=== PATIENT | female | born 1995 | race Caucasian/White ===

== ENCOUNTER 2020-03-02 17:58 | Emergency (ER) | payer OTHER, SELFPAY ==
[2020-03-02 18:04] VITALS: BP 155/75; PULSE 81; RESP 20; TEMP 37.4; O2SAT 100
--- NOTE | 2020-03-02 18:07 | ED.GENADULT ---
HPI - General Adult General Chief complaint: Eye Problems Stated complaint: Right eye Time Seen by Provider: 03/02/20 18:07 Source: patient Mode of arrival: ambulatory Limitations: no limitations History of Present Illness HPI narrative: 25-year-old female patient presents to the [facility] with complaints of pain to lower right lid on the eye. Patient states that started this morning when she woke up. Patient states that she wore eye make-up for the first time yesterday. Patient states she is tried warm compresses at home and feels like it is gotten worse. Patient denies any fevers or discharge coming from the eye. Patient denies any vision changes that she is aware of. Related Data Allergies Allergy/AdvReac Type Severity Reaction Status Date / Time No Known Allergies Allergy Verified 03/02/20 18:14 Review of Systems Review of Systems: Narrative: CONSTITUTIONAL: Denies fever, chills, or sweats. EYES: Denies visual changes, redness, or discharge. Positive right lower lid pain ENT: Denies rhinorrhea, congestion, sore throat, or otalgia. CARDIOVASCULAR: Denies chest pain, palpitations, or edema. RESPIRATORY: Denies cough or dyspnea. GASTROINTESTINAL: Denies abdominal pain, nausea, vomiting, or diarrhea. GENITOURINARY: Denies dysuria or hematuria. SKIN: Denies rash or itching. MUSCULOSKELETAL: Denies back pain, joint pain, or myalgia. NEUROLOGIC: Denies headache, numbness, or weakness. PSYCHIATRIC: Denies anxiety or depression. PMFSH Comments At the time of my signature I agree with nursing past medical history, surgical, social, and family history. There is no relevant family history pertinent to the presenting complaint. Exam Narrative: Exam Narrative: GENERAL: Well-appearing, well-nourished, and in no acute distress. HEAD: Normocephalic, atraumatic. EYES: PERRLA and EOM intact without limitation or complaint of pain, no periorbital soft tissue swelling ,no erythema, warmth or tenderness noted, no obvious deformity. No crusting or swelling.no tearing or draining.No photophobia. Patient does have an internal hordeolum noted on the lower lid toward the inner canthi and does internally. No nystagmus No FB or lesion on lid eversion. Corneas grossly clear, no obvious FB or hyphens/hypopyon. No injection to sclera. Lids and lashes clear. ENT: Nares clear, no rhinorrhea or epistaxis. Mucous membranes moist. NECK: Supple. No lymphadenopathy CHEST: Clear to auscultation. No respiratory distress. HEART: Regular rate and rhythm. No murmur heard. Normal peripheral pulses. ABDOMEN: Soft, nontender, nondistended, normal active bowel sounds. EXTREMITIES: Normal range of motion. No edema. SKIN: Warm, dry, no rash. NEURO: No focal deficits. Alert and oriented x3. Course Vital Signs Vital signs: Vital Signs Temperature 37.4 C 03/02/20 18:04 Pulse Rate 81 03/02/20 18:04 Respiratory Rate 20 03/02/20 18:04 Blood Pressure 155/75 H 03/02/20 18:04 Pulse Oximetry 100 03/02/20 18:04 Temperature 37.4 C 03/02/20 18:04 Pulse Rate 81 03/02/20 18:04 Respiratory Rate 20 03/02/20 18:04 Blood Pressure 155/75 H 03/02/20 18:04 Pulse Oximetry 100 03/02/20 18:04 Vital signs reviewed. The patient has been informed that they may have pre-hypertension or Hypertension based on a BP reading in the department. I recommend that the patient call the primary care provider listed on their discharge instructions or a physician of their choice this week to arrange follow up for further evaluation of possible pre-hypertension or Hypertension Medical Decision Making Differential Diagnosis Differential Diagnosis: Differential diagnosis: Conjunctivitis, foreign body, corneal ulcer, Keratitis, dendritic lesions, corneal abrasion, very orbital infection, orbital cellulitis, orbital pain, acute narrow angle glaucoma, detached retina, central retinal artery occlusion, complete hyphema, vitreous hemorrhage, optic neuritis, globe disruption
== END 2020-03-02 18:22 | disposition home or self-care (01) ==
PROVIDERS: Emergency Provider Nurse Practitioner Family
DX: H00.022 Hordeolum internum right lower eyelid (principal)
CPT/HCPCS: 99213; G0463

== ENCOUNTER 2020-03-25 19:00 | Emergency (ER) | payer OTHER, SELFPAY ==
[2020-03-25 19:07] VITALS: BP 150/73; PULSE 73; RESP 18; TEMP 36.8; O2SAT 100
--- NOTE | 2020-03-25 19:12 | ED.EYEPROB ---
HPI - Eye Problem General Chief complaint: Eye Problems Stated complaint: right eye Time Seen by Provider: 03/25/20 19:12 Source: patient and RN notes reviewed History of Present Illness HPI Narrative: Patient is a 25-year-old female who presents the urgent care with complaints of right eye irritation, redness, swelling. Patient states that it started approximately 1 month ago and she was seen in the emergency room and given Keflex, Bactrim and erythromycin gel. Patient states that she completed the oral antibiotic regimen and use the erythromycin gel as directed. Patient states that initially there was some improvement however, yesterday she noticed the swelling returned. Patient states she has been also using warm compress without any relief. Patient denies any known trauma or injury to the eye. Denies of any fever, chills, nausea, vomiting. No other acute complaints. No acute distress noted. Patient read the plan of care. Related Data Allergies Allergy/AdvReac Type Severity Reaction Status Date / Time No Known Allergies Allergy Verified 03/25/20 19:14 Review of Systems Review of Systems: Narrative: CONSTITUTIONAL: Denies fever, chills, or sweats. EYES: Reports of redness, swelling, drainage from the right eye ENT: Denies rhinorrhea, congestion, sore throat, or otalgia. CARDIOVASCULAR: Denies chest pain, palpitations, or edema. RESPIRATORY: Denies cough or dyspnea. GASTROINTESTINAL: Denies abdominal pain, nausea, vomiting, or diarrhea. GENITOURINARY: Denies dysuria or hematuria. SKIN: Denies rash or itching. MUSCULOSKELETAL: Denies back pain, joint pain, or myalgia. NEUROLOGIC: Denies headache, numbness, or weakness. All other systems reviewed are negative, except as documented in HPI. PMFSH Comments At the time of my signature, I reviewed and agree with the nursing past medical, surgical, social, and family history. There is no relevant family history pertinent to the patient complaint. Exam Narrative: Exam Narrative: GENERAL: This is a well-nourished, well-developed patient, in no apparent distress. HEAD: normocephalic, atraumatic. EYES: PERRL. Sclera clear/white. Vision is grossly intact. Mild to moderate edema to right lower lid, periorbital cellulitis. Likely clogged tear duct to the lower right inner canthus; no notable trauma, abrasion, hordeolum EARS: External ears normal NOSE: External nose normal with no obvious nasal discharge, nares without redness, no rhinorrhea. THROAT: Mucous membranes moist NECK: Neck supple SKIN: warm, intact with no suspicious lesions or rash, good texture and turgor. NEURO: awake, alert, and oriented to person, place and time. There were no obvious focal neurologic abnormalities. EXTREMITIES: No clubbing, cyanosis, or edema. Course Vital Signs Vital signs: Vital Signs Temperature 98.3 F 03/25/20 19:07 Pulse Rate 73 03/25/20 19:07 Respiratory Rate 18 03/25/20 19:07 Blood Pressure 150/73 H 03/25/20 19:07 Pulse Oximetry 100 03/25/20 19:07 Temperature 98.3 F 03/25/20 19:07 Pulse Rate 73 03/25/20 19:07 Respiratory Rate 18 03/25/20 19:07 Blood Pressure 150/73 H 03/25/20 19:07 Pulse Oximetry 100 03/25/20 19:07 Reviewed?patient is informed that they may have pre-hypertension or hypertension based on a blood pressure reading in the department. I recommend the patient call the primary care provider listed on their discharge instructions or a physician of their choice this week to arrange follow-up for further evaluation of possible pre-hypertension or hypertension. MDM - Eye Problem MDM Narrative Medical decision making narrative: Advised patient to complete oral antibiotic regimen as prescribed. Make sure to eat and drink with medication. Use eyedrops to the right eye as directed making sure to wipe off the applicator between each use. It appears that you may have had a clogged tear duct to the inner canthus of the right eye, causing the periorbital ce
== END 2020-03-25 19:24 | disposition home or self-care (01) ==
PROVIDERS: Emergency Provider Nurse Practitioner Family
DX: H04.551 Acquired stenosis of right nasolacrimal duct (principal); L03.213 Periorbital cellulitis
CPT/HCPCS: 99213; G0463

== ENCOUNTER 2025-03-03 15:35 | Emergency (ER) | payer OTHER, SELFPAY ==
--- NOTE | ~2025-03-03 | XR_ITS ---
XR ankle LT min 3V Ordering provider: Christina Tovar APRN History: . HYPEREXTENSION INJURY, GEN PAIN . Comparison: None. FINDINGS: BONES: No acute fracture or dislocation. JOINT SPACES: The ankle mortise is normal. SOFT TISSUES: Normal. IMPRESSION: No acute osseous abnormality left ankle. Reviewed, dictated and finalized at location A.
--- NOTE | ~2025-03-03 | XR_ITS ---
HISTORY: HYPEREXTENSION INJURY, GEN PAIN COMPARISON: None TECHNIQUE: 3 views of the left foot were performed FINDINGS: Cortical irregularity along the anterior medial margin of the distal calcaneus, only visualized on a single view for which clinical correlation is needed regarding point tenderness, as this may simply r epresent degenerative disease. No additional findings to suggest a fracture deformities are present The base of the fifth metatarsal is intact. No calcaneal spur is noted. Trace dorsal soft tissue swelling is present within the mid foot and hindfoot. IMPRESSION: Cortical irregularity along the anterior medial margin of the distal calcaneus, visualiz ed on a single view only for which clinical correlation is needed regarding point tenderness in this location as this may simply represent degenerative disease (and an irregular osteophyte). Reviewed, dictated and finalized at location A. IMPRESSION: Cortical irregularity along the anterior medial margin of the dist al calcaneus, visualized on a single view only for which clinical correlation i s needed regarding point tenderness in this location as this may simply represe nt degenerative disease (and an irregular osteophyte).
--- OUTSIDE RECORDS SUMMARY | 2025-03-03 15:38 | XMS_ITS | Patient Health Record ---
Author Organization [facility] Address [address] [place] [address] Care Team Providers Care Tooling Mechanic Name Role Phone Carie Finney Primary Care Provider Reason For Referral No Information Social History Sex Assigned At : Social History Observation Description Sex Assigned At Female PRAPARE Question Answer Notes Date Completed/Updated: 10/20/2024 What is your current housing situation? I have h ousing Are you worried about losing your housing? No What is the highest level of school that you have finished? Less than a high school degree What is your current work situation? Unemployed and seeking work In the past year, have you o r any family members you live with been unable to get any of the following when it was really needed? Check all that apply I do not have problems meeting my needs Has lack of transportation k ept you from medical appointments, meetings, work or from getting things needed for daily living? No How often do you see or talk to people that you care about and feel close to? (For example: talking to friends on the phone, visiting friends or family, going to orthodox or club meetings) Less than once a week How stressed are you? Stress is when someone feels tense, nervous, anxious, or can\t sleep at night because their mind is troubled A little bit In the past year have you sp ent more than 2 nights in a row in a fpc, penitentiary, half-way center, or juvenile correctional facility? No Are you a refugee? No What country are you from? [place] Do you feel physically and e motionally safe where you currently live? Yes In the past year, have you b een afraid of your partner or ex-partner? No PRAPARE Score: 8 Encounters Encounter Location Date Provider Diagnosis [facility] [facility] [place] [address] 10/21/2024 Carie Finney Plan Of Treatment No Information Insurance Providers Payer Name Payer Address Payer Phone Subscriber Number Group Number Insured Name Patient Relationship to Insured Coverage Start Date Coverage End Date [address] [phone] [id number] Ashlyn Polk Self - patient is the insured 3
--- OUTSIDE RECORDS SUMMARY | 2025-03-03 15:38 | XMS_ITS | Clinical Summary ---
Author Organization [facility] Address [address] [place] [address] Care Team Providers Care Patient Svcs Mgr Name Role Phone Unavailable Primary Care Provider Unavailabl e Source Comments [facility],non-owned Affiliates and Associated Physician Practices is amultiple site organization consisting of ambulatory clinics and hospital sitesin [place], [place], [place] and [place]. This disclosure is being madepursuant to the Care Everywhere program and may not contain all information available regarding this patient. Last updated 18.[facility] Social History Tobacco Use Types Packs/Day Years Used Date Smoking Tobacco: Never Assessed Comments Unknown Sex and Gender Information Value Date Recorded Sex Assigned at Not on file Legal Sex Female 12:50 PM CDT Gender Identity Not on file Sexual Orientation Not on file Plan of Treatment Health Maintenance Due Date Last Done Comments HIV SCREENING 02/04/2012 HEPATITIS C SCREENING 01/30/2015 DTAP/TDAP/TD VACCINES (1 - Tdap) 02/04/2016 HEPATITIS B VACCINE (1 of 3 - 19+ 3-dose series) 02/04/2016 COVID-19 VACCINE ( - 2023-2 5 season) 2024 DEPRESSION SCREENING 10/14/2024 INFLUENZA VACCINE (Season Ended) 2025 ZOSTER VACCINE (1 of 2) 2047 HIB VACCINE Aged Out No longer eligi ble based on patient's age to complete this topic HPV VACCINE Aged Out No longer eligi ble based on patient's age to complete this topic MENINGOCOCCAL (Group B) VACC INE SHARED DECISION-MAKING Aged Out No longer eligibl e based on patient's age to complete this topic MENINGOCOCCAL GROUPS A/C/Y/W VACCINE Aged Out No longer eligible b ased on patient's age to complete this topic PNEUMOCOCCAL VACCINE Aged Out No long er eligible based on patient's age to complete this topic Insurance [facility]
--- OUTSIDE RECORDS SUMMARY | 2025-03-03 15:38 | XMS_ITS ---
Author Organization [facility] Address [address] [place] [address] Care Team Providers Care Director Of Intelligence Name Role Phone Rosa Finneyfer Primary Care Provider [phone] REASON FOR VISIT PRAPARE Assess Social History Sex Assigned At : Social [...] phone, visiting friends or family, going to congregation or club meetings) Less than once a week How stressed are you? Stress is when someone feels tense, nervous, anxious, or can\t sleep at night because their mind is troubled A little bit In the past year have you sp ent more than 2 nights in a row in a usp, long term, senior living center, or juvenile correctional facility? No Are you a refugee? No What country are you from? [place] Do you feel physically and e motionally safe where you currently live? Yes In the past year, have you b een afraid of your partner or ex-partner? No PRAPARE Score: 8 Encounters Encounter Location Date Provider Diagnosis [address] [place] [address] 10/21/2024 Carie Finney Plan Of Treatment No Information Progress Notes * Pretty POLKOB:[birth year] (30 yo F)Acc No.[id number]:10/21/2024 UNLOCKED PROGRESS NOTE Patient: Ashlyn MATTHEWS :1995 A ge:29 Y S ex:Female Address:[place] [address] Subjective: * Chief Complaints: * Walter JUAN Assess * Medical History: * Surgical History: * Hospitalization/Major Diagno stic Procedure: * Social History: S ocial Determinants: Walter Davis ate Completed/Updated: 0 10/20/2024, W hat is your current housing situation? I have housing, A re you worried about losing your housing? N o, W hat is the highest level of school that you have finished? L ess than a high school degree, W hat is your current work situation? U nemployed and seeking work, I n the past year, have you or any family members you live with been unable to get any of the following when it was really needed? Check all that apply I do not have problems meeting my needs, H as lack of transportation kept you from medical appointments, meetings, work or from getting things needed for daily living? N o, H ow often do you see or talk to people that you care about and feel close to? (For example: talking to friends on the phone, visiting friends or family, going to congregation or club meetings) L ess than once a week, H ow stressed are you? Stress is when someone feels tense, nervous, anxious, or can\t sleep at night because their mind is troubled A little bit, I n the past year have you spent more than 2 nights in a row in a usp, long term, senior living center, or juvenile correctional facility? N o, A re you a refugee? N o, W hat country are you from[place], D o you feel physically and emotionally safe where you currently live? Y es, I n the past year, have you been afraid of your partner or ex-partner? N o, P RAPARE Score: 8. * Medications: Objective: * Vitals: * Physical Examination: Assessment: Plan: * Treatment: * Procedure Codes: * * Date:
--- OUTSIDE RECORDS SUMMARY | 2025-03-03 15:38 | XMS_ITS | Referral Summary ---
Author Organization [facility] Address [address] [place] [address] Care Team Providers Care Department Coordinator Name Role Phone Kavon Murdock MD Unavailable No, Physician Primary Care Provider [phone] Allergies Active Allergy Reactions Criticality Noted Date Comments Penicillin G Swelling Medium 02/15/2023 States her throat swells Penicillins Hives Medium 09/12/2022 Medications docusate sodium (COLACE) 100 mg capsuleIndicati ons:constipatio n,Stool Softener Take 1 capsule (100 mg total) by mouth 2 (two) times a day 30 capsule 1 4 Active ferrous sulfate 325 mg (65 mg of elemental iron) tabletIndicatio ns:Iron Deficiency Anemia Take 1 tablet (325 mg total) by mouth daily with breakfast 30 tablet 11 4 03/16/20 25 Active Active Problems Problem Noted Date Diagnosed Date with fetus of unknown gestational age 0603/14/2024 Amenorrhea 06/26/2023 Current smoker 04/17/2023 Anxiety 04/17/2023 Assessment & Plan (06/26/2023 9:30 AM CDT): Not well controlled Still having mood swings Recommend eval by psychiatry For now continue zoloft 100 mg every day Physical exam, annual 03/25/2023 Assessment & Plan (03/25/2023 3:38 PM CDT): Discussed lifestyle modifications, diet and exercise. Routine blood work ordered/reviewed today. Yearly vision and dental examinations. Exposure to STD 09/11/2021 Negative test 07/06/2019 Resolved Problems Problem Noted Date Diagnosed Date Resolved Date Strep pharyngitis 09/11/2021 06/26/2023 Impetigo 07/06/2019 06/26/2023 Immunizations Immunization Administration Dates Next Due Influenza, Unspecified 01/11/2023(Deferr ed: Patient Refused),10/31/2021(Deferred: Patient Refused),10/14/2020 Tdap 03/15/2022 Social History Tobacco Use Types Packs/Day Years Used Date Smoking Tobacco: Every Day Cigarettes 2.6 16.4 Started: 2008 Vaping Started: 2022 Smokeless Tobacco: Never Tobacco Cessation:Ready to Q uit: No; Counseling Given: Yes Alcohol Use Standard Drinks/Week Comments No 0 (1 standard drink = 0.6 oz pur e alcohol) [facility] Wi-Chiities Answer Date Recorded In the past 12 months has [employer] gas, oil, or water [employer] threatened to shut off services in your home? No 03/16/2024 Humiliation, Afraid, Rape, and Kick questionnair e Answer Date Recorded Within the last year, have y ou been afraid of your partner or ex-partner? No 03/16/2024 Within the last year, have y ou been humiliated or emotionally abused in other ways by your partner or ex-partner? No Within the last year, have y ou been kicked, hit, slapped, or otherwise physically hurt by your partner or ex-partner? No 03/16/2024 Within the last year, have y ou been raped or forced to have any kind of sexual activity by your partner or ex-partner? No 03/16/2024 Social Connection and Isolat ion Panel [NHANES] Answer Date Recorded In a typical week, how many times do you talk on the phone with family, friends, or neighbors? More than three times a week 03/16/2024 How often do you get togethe r with friends or relatives? More than three times a week 03/16/2024 How often do you attend [facility] or rastafarian services? Never 03/16/2024 Do you belong to any clubs o r organizations such as oriental orthodox groups, unions, fraternal or athletic groups, or school groups? No 03/16/2024 How often do you attend meet ings of the clubs or organizations you belong to? Never 03/16/2024 Are you , , di vorced, , never , or living with a partner? Never 03/16/2024 AUDIT-C Answer Date Recorded Q1: How often do you have a drink containing alcohol? Never 03/16/2024 Q2: How many drinks containi ng alcohol do you have on a typical day when you are drinking? Patient does not drink Q3: How often do you have si x or more drinks on one occasion? Never 03/16/2024 Overall Financial Resource Strain (CARDIA) Answe r Date Recorded How hard is it for you to pa y for the very basics like food, housing, medical care, and heating? Not hard at all 03/16/2024 PHQ-2 Answer Date Recorded PHQ-2 Total Score 0 03/16/2024 [facility] - Occupational Stress Questionnaire Answer Date Recorded Do you feel stress - tense, restless, nervous, or anxious, or unable to sleep at night because your mind is troubled all the time - these days? To some extent 03/16/2024 Exercise Vital Sign Answer Date Recorde d On average, how many days pe r week do you engage in moderate to strenuous exercise (like a brisk walk)? 0 days 03/16/2024 On average, how many minutes do you engage in exercise at this level? 0 min 03/16/2024 Hunger Vital Sign Answer Date Recorded Within the past 12 months, y ou worried that your food would run out before you got the money to buy more. Never true 03/16/20 24 Within the past 12 months, t he food you bought just didn't last and you didn't have money to get more. Never true 03/16/2024 PRAPARE - Transportation Answer Date Re corded In the past 12 months, has l ack of transportation kept you from medical appointments or from getting medications? No 12/2023 In the past 12 months, has l ack of transportation kept you from meetings, work, or from getting things needed for daily living? No 03/16/2024 [place] Depression Scale Answer Date Recorded [place] Depression Scale Total 0 03/16/2024 The thought of harming myself has occurred to me . Never 03/16/2024 Housing Stability Vital Sign Answer Madi e Recorded In the last 12 months, was t here a time when you were not able to pay the mortgage or rent on time? No 03/16/2024 In the past 12 months, how m any times have you moved where you were living? 2 03/16/2024 At any time in the past 12 m [facility], were you homeless or living in a senior care (including now)? Yes 03/16/2024 Personal Safety Answer Date Recorded Have you ever been in or are you currently in a harmful physical or emotional relationship or is someone making you feel afraid or unsafe? Denies 03/14/2024 Comments No Sex and Gender Information Value Date Recorded Sex Assigned at Not on file Legal Sex Female 4:39 PM CDT Gender Identity Female 02/10/2024 8:29 PM CDT Sexual Orientation Straight 02/10/2024 8: 29 PM CDT Last Filed Vital Signs Vital Sign Reading Time Taken Comments Blood Pressure 133/79 03/16/2024 3:42 PM CDT Pulse 72 03/16/2024 3:42 PM CDT Temperature 37.1 C (98.7 F) 03/16/2024 3:42 PM CDT Respiratory Rate 17 03/16/2024 3:42 PM CDT Oxygen Saturation 99% 03/16/2024 3:42 PM CDT Inhaled Oxygen Concentration - - Weight 70.1 kg (154 lb 9.6 oz) 06/26/2023 9:10 A M CDT Height 157.5 cm (5' 2 ) 06/26/2023 9:10 AM CDT Body Mass Index 28.28 06/26/2023 9:10 AM CDT Plan of Treatment Not on file Procedures Procedure Name Priority Date/Time Associated Diagnosis Comments HEPATITIS PANEL, ACUTE Routine 03/14/2024 11:49 AM CDT HM PAP SMEAR WITH HPV Routine 08/18/2020 from Last 3 Months or Most Recently Relevant to Health Maintenance Results * Hepatitis panel, acute Blood (03/14/2024 11:49 AM CDT) Hep A IgM Nonreactive Nonreactive Comment: Interpretive Data: If Hep A IgM Ab is reported as Equivocal, a new sample should be drawn in two weeks for testing. Current interpretive data was last revised on 19. Testing performed by: [address] [address] Hep B core IgM Nonreactive Nonreactive C DEA CHANEY ([place]) Comment: Interpretive Data If HepB Core IgM Ab is reported as Equivocal, a new sample should be drawn in two weeks for testing. Current interpretive data was last revised on 19. Testing performed by: [address] [address] Hep C Ab Nonreactive Nonreactive ALIA CHANEY ([place]) Comment: Interpretive Data Nonreactive: Antibodies to HCV not detected. Does NOT exclude the possibility of recent exposure to HCV. Equivocal: Equivocal for HCV antibodies. Supplemental molecular testing will be automatically performed to determine infection status in accordance with current CDC screening recommendations. Reactive: Positive for HCV antibodies. This may represent current or past HCV infection. Supplemental molecular testing will be automatically performed to determine current infection status in accordance with current CDC screening recommendations. Interpretive data was last revised on 2019. Testing performed by: [facility], [address] [place] [address]., [id number] HepBsAg Nonreactive Nonreactive ALIA CHANEY ([place]) Comment:Testing performed by : [address] [address] Blood 03/14/2024 11:4 9 AM CDT 03/14/2024 4:21 PM CDT us August Arzate MD LAB MICROBIOLOGY - GEN ERAL ORDERABLES Final Result VIRIBENNETT CHANEY ([place]) 1 [facility] Department [place] [address] * (ABNORMAL) HM PAP SMEAR WITH HPV (08/18/2020) Scribed Pap Smear w/HPV Abnormal 08/18/2020 us Historical Provider HEALTH MAINTENANCE Final Result from Last 3 Months or Most Recently Relevant to Health Maintenance Insurance [facility] Advance Directives For more information, please contact: [phone] * Full Code (Latest Code Status on File) Date Activated Date Inactivated Comments 03/14/2024 3:51 PM 03/16/2024 10:35 PM * Full Code Date Activated Date Inactivated Comments 03/14/2024 11:48 AM 03/14/2024 3:51 PM Full CPR in c ase of cardiopulmonary arrest * Full Code Date Activated Date Inactivated Comments 05/08/2022 1:19 PM 05/10/2022 8:52 PM * Full Code Date Activated Date Inactivated Comments 05/07/2022 11:06 PM 05/08/2022 1:19 PM Full CPR in case of cardiopulmonary arrest * Full Code Date Activated Date Inactivated Comments 02/08/2021 9:54 AM 02/10/2021 8:09 PM Full CPR in case of cardiopulmonary arrest Care Teams Department Coordinator Relationship Specialty Start Date End Date No, Physician PCP - General 02/20/24 Kavon Murdock MD [address] [place] [address] [address] BUT[address] [address] Jet Handler Obstetrics and Gynecology 10/31/21
--- OUTSIDE RECORDS SUMMARY | 2025-03-03 15:38 | XMS_ITS | Clinical Summary ---
Author Organization [facility] Address [address] [place] [address] Care Team Providers Care Vice President Of Operations Name Role Phone Kavon Mudrock MD Unavailable [phone] No, Physician Primary Care Provider [phone] Allergies Active Allergy Reactions Criticality Noted Date [...] ed: Patient Refused),10/31/2021(Deferred: Patient Refused),10/14/2020 Tdap 03/15/2022 Medical History Medical History Date Comments Hiatal hernia Mental disorder anxiety, took fl uoxitine in the past Lung disease asthma Urinary tract infection Asthma Family History Medical History Relation Name Comments Hypertension Maternal Grandfather Hypertension Mother Relation Name Status Comments Maternal Grandfather Mother Social History Tobacco Use Types Packs/Day Years Used Date Smoking Tobacco: Every Day Cigarettes 2.6 16.4 Started: 2008 Vaping Started: 2022 Smokeless Tobacco: Never Tobacco Cessation:Ready to Q uit: No; Counseling Given: Yes Alcohol Use Standard Drinks/Week Comments No 0 (1 standard drink = 0.6 oz pur e alcohol) [facility] [employer] Answer Date Recorded In the past 12 months has e [employer], gas, oil, or water [email or web address] threatened to shut off services in your [...] week 03/16/2024 How often do you attend chur ch or confucianist services? Never 03/16/2024 Do you belong to any clubs o r organizations such as denominational groups, unions, fraternal or athletic groups, or [...] Date Recorded PHQ-2 Total Score 0 03/16/2024 [facility] Occupat ional Health - Occupational Stress [...] things needed for daily living? No 03/16/2024 [place] Depression Scale Answer Date Recorded [place] Depression Scale Total 0 03/16/2024 The thought [...] any time in the past 12 m onths, were you homeless or living in a residential (including now)? Yes 03/16/2024 Personal Safety Answer [...] Orientation Straight 02/10/2024 8: 29 PM CDT Obstetrics History Para Term AB IAB SAB Ectopic Multiple Livin g Live Births 6 6 4 2 1 7 7 Date Outcome GA Total Labor Labor/2nd/3rd Weight Sex Type Anes PTL Louise A1 A5 Name Clin 2015 Term M Livin g 2016 F Vag-Sp ont Livin g 2016 F Livin g 2018 Term 39w 4d 0h 06m 0h 06m 3.21 kg (7 lb 1.2 oz) F Vag-Sp ont Epidur al N Livin g 8 9 JOEY POLK Olami de, MD Complications:None Delivery Location:This [facility] ([facility]) 2020 Term 39w 5d 6h 19m 6h 03m/0h 09m/0h 07m 2.871 kg (6 lb 5.3 oz) M Vag-Sp ont Epidur al N Livin g 7 9 DEISI ,JOÃO JAKOB olivares, Pearl Treviño MD Complications:None Delivery Location:This [facility] ([facility]) 2021 Term 38w 0d 1h 21m 1h 05m/0h 08m/0h 08m 3.38 kg (7 lb 7.2 oz) F Vag-Sp ont Epidur al N Livin g 9 9 DEISI ,GIRL JENNIFER JUAREZA Hardaubrey an, Kavon woo MD Complications:None Delivery Location:This [facility] ([facility]) 2023 36w 5d 1h 06m 0h 50m/0h 14m/0h 02m 3.49 kg (7 lb 11.1 oz) F Vagina l Epidur al Y Livin g 8 8 Anast braydon Melod y Harpe r Hamma ck She r, Aman howell MD Complications:Precipitous La bor (<3 hours) Delivery Location:This Facil [facility] ([facility]) Comments 2 miscarriages years ago and 1 before this Last Filed Vital Signs Vital Sign Reading [...] 06/26/2023 9:10 AM CDT Plan of Treatment Health Maintenance Due Date Last Done Comments Varicella Vaccines (1 of 2 - 13+ 2-dose series) 2010 Hepatitis B Screening 2015 Pneumococcal vaccine <65 (1 of 2 - PCV) 02/04/2016 Cervical Cancer Screening 08/18/2021 08/18/2020 Regular Well Visit/Exam 18-64 03/25/2024 03/25/2023 Depression Screening 03/16/2025 03/16/2024, 03/14/2024, 06/26/2023, Additional history exists Influenza Vaccine (Season Ended) 2025 10/14/2020 DTaP/Tdap/Td Vaccine (2 - Td or Tdap) 03/15/2032 03/15/2022 Hepatitis C Screening Completed 03/14/2024, 021 HPV Vaccines Aged Out No longer eligi ble based on patient's age to complete this topic Procedures Procedure Name Priority Date/Time Associated Diagnosis [...] last revised on 19. Testing performed by: [address] [address] Hep B core IgM Nonreactive Nonreactive Cornel CHANEY ([place]) Comment: Interpretive Data If HepB Core IgM Ab is reported as Equivocal, a new sample should be drawn in two weeks for testing. Current interpretive data was last revised on 19. Testing performed by: [address] [address] Hep C Ab Nonreactive Nonreactive [facility] ([place]) Comment: Interpretive Data Nonreactive: Antibodies to [...] last revised on 2019. Testing performed by: [address] [place]., [address] HepBsAg Nonreactive Nonreactive ALIA SHIV ([place]) Comment:Testing performed by : [facility], [address] [place] [address]., [id number] Blood 03/14/2024 11:4 9 AM CDT 03/14/2024 4:21 PM CDT August Arzate MD LAB MICROBIOLOGY - GEN ERAL ORDERABLES Final Result ALIA CHANEY ([place]) 1 [facility] Department [place] [address] * (ABNORMAL) HM PAP SMEAR WITH HPV (08/18/2020) Scribed Pap Smear w/HPV Abnormal 08/18/2020 Historical Provider HEALTH MAINTENANCE Final Result from Last 3 Months or Most Recently Relevant to Health Maintenance Insurance [facility] Advance Directives For more information, please contact: [phone] * Full Code (Latest Code Status on [...] in case of cardiopulmonary arrest Care Teams Vice President Of Operations Relationship Specialty Start Date End Date No, Physician PCP - General 02/20/24 Kavon Murdock MD [address] [place] [address] [address] BUTCHER [place] [id number] Template Layout Worker Obstetrics and Gynecology 10/31/21
--- OUTSIDE RECORDS SUMMARY | 2025-03-03 15:38 | XMS_ITS | Clinical Summary ---
Author Organization [facility] Address [address] [place] [address] Phone Care Team Providers Care Interior Design Professional Name Role Phone Provider, None Primary Care Provider Unavailabl e Allergies Active Allergy Reactions Criticality Noted Date Comments Penicillin G Swelling 02/15/2023 States her throat swells Medications promethazine (PHENERGAN) 12.5 MG Tablet 09/01/2018 Acti ve pantoprazole (PROTONIX) 40 MG Tablet Delayed Response 08/26/2018 Active metroNIDAZOLE (FLAGYL) 500 MG TabletIndicatio ns:Colitis Take 1 Tab by mouth 3 times daily. 30 Tab 04/07/2020 Active ondansetron (ZOFRAN-ODT) 4 MG TABLET DISPERSIBLEIndi cations:Colitis Take 1 Tab by mouth every 8 hours as needed for Nausea - 2nd line. 20 Tab 10/12/2020 Active metoclopramide (REGLAN) 10 MG Tablet Take 1 Tab by mouth 3 times daily as needed for Nausea - 1st line or Vomiting. 60 Tab 10/12/2020 Active HYDROcodone-alma taminophen (NORCO) 5-325 MG TabletIndicatio ns:Threatened miscarriage,Uri nary tract infection Take 1 Tablet by mouth every 6 hours as needed for Moderate or more severe pain. 10 Tablet 03/09/2023 Active Active Problems Problem Noted Date Diagnosed Date Colitis 04/07/2020 Ventral hernia without obstruction or gangrene 1 11/17/2017 Immunizations Immunization Administration Dates Next Due RHO D IG FULL DOSE 300 MCG IM 03/09/2023 Family History Medical History Relation Name Comments Diabetes Father Hypertension Mother Relation Name Status Comments Father Alive Mother Alive Social History Tobacco Use Types Packs/Day Years Used Date Smoking Tobacco: Every Day Cigarettes 0.5 10 Smokeless Tobacco: Never Tobacco Cessation:Ready to Q uit: No; Counseling Given: No Alcohol Use Standard Drinks/Week Comments Not Currently 0 (1 standard drink = 0.6 oz pur e alcohol) once or twice Comments Unknown Sex and Gender Information Value Date Recorded Sex Assigned at Not on file Legal Sex Female 9:46 AM CDT Gender Identity Not on file Sexual Orientation Not on file Last Filed Vital Signs Vital Sign Reading Time Taken Comments Blood Pressure 138/72 03/09/2023 7:24 PM CDT Pulse 112 03/09/2023 4:26 PM CDT Temperature 37.2 C (99 F) 03/09/2023 4:26 PM CDT Respiratory Rate 20 03/09/2023 4:26 PM CDT Oxygen Saturation 100% 03/09/2023 4:26 PM CDT Inhaled Oxygen Concentration - - Weight 65.8 kg (145 lb) 03/09/2023 4:26 PM CDT Height 157.5 cm (5' 2 ) 03/09/2023 4:26 PM CDT Body Mass Index 26.52 03/09/2023 4:26 PM CDT Plan of Treatment Health Maintenance Due Date Last Done Comments Hepatitis C Virus (HCV) Screening 1997 Hepatitis B Immunization (1 of 3 - 19+ 3-dose series) 02/04/2016 Pneumococcal Immunization Combined (1 of 2 - PCV) 02/04/2016 Pap Smear 2018 Influenza Immunization (#1) 2024 10/14/2020 SARS-COV-2 Immunization ( season) 2024 Respiratory Syncytial Virus (RSV) Immunization (Adult) (1 - 1-dose 75+ series) 02/04/2072 DTaP/Tdap/Td Immunization Discontinued 03/15/2022 TdaP Immunization Completed 03/15/2022 Meningococcal Immunization (ACWY) Aged Out No longer eligible based on patient's age to complete this topic Rotavirus Immunization Aged Out No lo nger eligible based on patient's age to complete this topic Insurance [place] Care Teams Interior Design Professional Relationship Specialty Start Date End Date Provider, None [place] PCP - General 07/22/18
--- OUTSIDE RECORDS SUMMARY | 2025-03-03 15:42 | XMS_ITS | Data Portability ---
Author Organization [facility] DICKSusana Wilhelm Address [address] [place] [address] Care Team Providers Care Preflight Inspector Name Role Phone KAITY JORGENSEN Chemical Detection Expert Assessment No assessment recorded. Plan of Treatment Reminders Order Date Submit Date Provider Last Modified By Organization Details Last Modified Time Details Appointments None record ed. Lab urinal ysis, dipsti ck 2023 024 [email or web address] In-Office Order, Internal Use Only DO Not Attach Compendium DO Not Attach Compendium, Do Not Delete/merge, [id number] 4 01:52:57 drug screen , urine 2023 024 KRISTY [facility], [address], [place], [address], 4 07:15:38 cultur e, urine 2023 024 [email or web address] [facility], [address], [place], [address], 4 09:10:55 prenat al panel 2023 024 KRISTY [facility], [address] [place] [address], [address], 4 17:18:15 hemogl obin (Hb) electr ophore sis, blood 2023 024 [email or web address] [facility], [address] [place] [address] 2, [place], [address], 4 11:33:16 HIV 1 + 2, meanin gful use set 2023 024 cdarrrn [facility], [address] [facility], [facility], [place], [address], 4 11:33:16 varice lla zoster virus IgG Ab, QN, IA, serum 2023 024 cdarrrn [facility], [address] [facility], [facility], [place], [address], 4 11:33:16 urinal ysis comple te, reflex cultur e 2023 024 cdarrrn [facility], [address] [facility], [facility], [place], [address], 4 11:33:16 drug screen , urine 2023 024 cdarrrn [facility], [address] [place] [address], [facility], [place], [address], 4 11:33:16 CFTR gene mutati ons found, blood or tissue 2023 024 [email or web address] [facility], [address] [facility], [facility], [place], [address], 4 09:12:15 Hepati tis C IgG Ab, qual, serum 2023 024 cdarrrn [facility], [address] [facility], [facility], [place], [address], 4 11:34:28 drug screen , urine 2023 024 cdarrrn [facility], [address] [place] [address], [facility], [place], [address], 4 11:33:27 urinal ysis, dipsti ck 2023 024 [email or web address] In-Office Order, Internal Use Only DO Not Attach Compendium DO Not Attach Compendium, Do Not Delete/merge, [id number] 4 12:51:51 pregna ncy test, urine 2023 024 [email or web address] In-Office Order, Internal Use Only DO Not Attach Compendium DO Not Attach Compendium, Do Not Delete/merge, [id number] 4 13:52:23 cytolo gy report , thin prep, smear or scrapi ng, cervic al or vagina l 2023 024 COLLISON [facility], [address], [place], [address], 4 07:15:34 HCG, intact + beta subuni t, quant, serum or plasma 2022 023 [facility], [address], [place], [address], 3 11:29:17 Referral dermat ologis t referr al 2023 024 [facility] ([facility]), [address] [facility], [address], [place], [address], 4 15:02:27 Procedures None record ed. Surgeries None record ed. Imaging US, obstet kita, matern al evalua tion + anatom y [address] [facility] (Central Scheduling), [address], [place], [address], 4 11:55:59 US, obstet kita, matern al evalua tion + anatom y [facility], [address] [facility] , [place], [address], 4 11:56:22 Medication Orders medrox yproge steron e 150 mg/mL intram uscula r suspen luis manuel 2023 024 [id number] [place], [address], 4 15:20:41 Prozac 20 mg capsul e 2023 024 [id number] [address] [place], [address], 4 14:30:46 medrox yproge steron e 150 mg/mL intram uscula r suspen luis manuel 2023 024 [id number] [place], [address], 4 10:49:42 Macrob id 100 mg capsul e 2023 024 [id number] [address] [place], [address], 4 14:30:50 Patient TargetsNo targets recorded. Patient Instructions Encounter Date Encounter Id Patient Instructions Last Modified By Organization Details Last Modified Time 02/06/2024 [id number] edinburgh depression scale* COLLISON Not available 02/06/2024 13:50:46 04/27/2024 [id number] A healthy lifestyle: care instructions ebenezer Not available 04/27/2024 10:58:14 05/05/2024 [id number] A healthy lifestyle: care instructions [facility] Not available 05/05/2024 15:20:41 Reason for Referral Package Sealer Machine Referral for H idradenitis Referring Physician: Kaity Jorgensen, PROCESS AREA SUPERVISOR, Encounter Date: 05/05/2024 Results Created Date Observation Date Name Description Value Unit Range Abnormal Flag Note LastModifiedBy Organization Detail LastModifiedTime 03/13/20 23 03/14/2023 HCG,B ETA SUBUN IT, QNT HCG,beta subunit,qnt, serum 80 mIU/m L Femal e (Non- pregn ant) 0 - 5 (Post menop ausal ) 0 - 8 Femal e (Preg nant) Weeks of Gesta tion 3 6 - 71 4 10 - 750 5 217 - 7138 6 158 - 50193 7 3697 -1635 63 8 38333 -1495 71 9 29022 -1514 10 10 80367 -1869 77 12 75545 -2106 12 14 74446 - 53652 15 39646 - 82195 16 9040 - 88676 17 8175 - 05935 18 8099 - 74171 Gloria ECLIA metho dolog y Not Available [facility] ([facility]) [address] [place], [address], 03/14/2023 11:12:53 10/01/20 23 10/02/2023 HCG,B ETA SUBUN IT, QNT HCG,beta subunit,qnt, serum 53283 mIU/m L Femal e (Non- pregn ant) 0 - 5 (Post menop ausal ) 0 - 8 Femal e (Preg nant) Weeks of Gesta tion 3 6 - 71 4 10 - 750 5 217 - 7138 6 158 - 87827 7 3697 -1635 63 8 36572 -1495 71 9 84464 -1514 10 10 55197 -1869 77 12 16411 -2106 12 14 70794 - 02547 15 58677 - 75256 16 9040 - 66583 17 8175 - 09803 18 8099 - 27855 Resul ts confi rmed on dilut ion. Gloria ECLIA metho dolog y Not Available [facility] ([facility]) [address] [facility], [place], [address], 10/02/2023 11:12:41 02/06/20 24 02/09/2024 IGP,C TNGTV ,RFX APTIM A HPV ASCU chlamydia, nuc. acid amp Negati ve negati ve Not Available [facility] ([facility]) [address] [facility], [place], [address], 02/11/2024 07:15:34 02/06/20 24 02/09/2024 IGP,C TNGTV ,RFX APTIM A HPV ASCU gonococcus, nuc. acid amp Negati ve negati ve Not Available [facility] ([facility]) [address] [place], [address], 02/11/2024 07:15:34 02/06/20 24 02/09/2024 IGP,C TNGTV ,RFX APTIM A HPV ASCU trich vag by RAISA Negati ve negati ve Not Available [facility] ([facility]) [address] [place], [address], 02/11/2024 07:15:34 02/06/20 24 02/10/2024 IGP,C TNGTV ,RFX APTIM A HPV ASCU diagnosis: Shady WILKINS FOR INTRA EPITH ELIAL LESIO N OR CLIFTON LÓPEZ . Not Available [facility] ([facility]) [address] [facility], [place], [address], 02/11/2024 07:15:34 02/06/20 24 02/10/2024 IGP,C TNGTV ,RFX APTIM A HPV ASCU specimen adequacy: Shady raymond Satis factyoli ry for evalu ation . Endoc ervic al and/o r squam ous metap lasti c cells (endo cervi rochelle compo nent) are prese nt. Not Available [facility] ([facility]) [address] [facility], [place], [address], 02/11/2024 07:15:34 02/06/20 24 02/10/2024 IGP,C TNGTV ,RFX APTIM A HPV ASCU clinician provided ICD10: Shady raymond Z34.0 1 Not Available [facility] ([facility]) [address] [place], [address], 02/11/2024 07:15:34 02/06/20 24 02/10/2024 IGP,C TNGTV ,RFX APTIM A HPV ASCU performed by: Shady oliva, Cytot marita more t (ASCP ) Not Available [facility] ([facility]) [address] [facility], [place], [address], 02/11/2024 07:15:34 02/06/20 24 02/10/2024 IGP,C TNGTV ,RFX APTIM A HPV ASCU . . Not Available [facility] ([facility]) [address] [facility], [place], [address], 02/11/2024 07:15:34 02/06/20 24 02/10/2024 IGP,C TNGTV ,RFX APTIM A HPV ASCU note: Shady raymond The Pap smear is a scree mariel test desig loulou to aid in the detec tion of macario ligna nt and malig nant condi tions of the uteri ne cervi x. It is not a diagn ostic proce dure and shoul d not be used as the sole means of detec ting cervi rochelle cance r. Both false -posi tive and false -nega tive repor ts do occur . Not Available [facility] ([facility]) [address] [facility], [place], [address], 02/11/2024 07:15:34 02/06/20 24 02/10/2024 IGP,C TNGTV ,RFX APTIM A HPV ASCU test methodology: Shady raymond This liqui d based ThinP rep(R ) pap test was scree loulou with the use of an image guide d syste m. Not Available [facility] ([facility]) [address] [facility], [place], [address], 02/11/2024 07:15:34 02/06/20 24 02/10/2024 IGP,C TNGTV ,RFX APTIM A HPV ASCU . Shady raymond The HPV DNA refle x crite kaiden were not met with this speci men resul t there fore, no HPV testi ng was perfo rmed. Not Available [facility] ([facility]) [address] [facility], [place], [address], 02/11/2024 07:15:34 02/06/20 24 02/07/2024 SPECI MEN STATU S REPOR T specimen status report TNP Test not perfo rmed. Sanju simms tests order ed. TEST: [id number] Urine Cultu re, Routi ne Not Available [facility] ([facility]) [address] [facility], [place], [address], 02/29/2024 07:13:57 02/06/20 24 02/07/2024 HGB FRACT IONAT ION [place] HGB F 0.0 % 0.0-2. 0 Not Available [facility] ([facility]) [address] [facility], [place], [address], 02/29/2024 07:13:57 02/06/20 24 02/07/2024 HGB FRACT IONAT ION [place] HGB A 97.5 % 96.4-9 8.8 Not Available [facility] ([facility]) [address] [facility], [place], [address], 02/29/2024 07:13:57 02/06/20 24 02/07/2024 HGB FRACT IONAT ION [place] HGB A2 2.5 % 1.8-3. 2 Not Available [facility] ([facility]) [address] [facility], [place], [address], 02/29/2024 07:13:57 02/06/20 24 02/07/2024 HGB FRACT IONAT ION [place] HGB S 0.0 % 0.0 Not Available [facility] ([facility]) [address] [place], [address], 02/29/2024 07:13:57 02/06/20 24 02/07/2024 HGB FRACT IONAT ION CAS[place] interpretati on: Commen t Brea l hemog lobin prese nt; no hemog lobin varia nt or beta thala ssemi a ident ified . Note: Alpha thala ssemi a may not be detec yuliya by the Hgb Fract ionat ion [place] panel . If alpha thala ssemi a is suspe cted, [facility] offer s Alpha -Thal assem ia DNA Ryan sis (#[id number]). Not Available [facility] ([facility]) [address] [facility], [place], [address], 02/29/2024 07:13:57 02/06/20 24 02/08/2024 INTER PRETA TION: interpretati on: Commen t Not infec yuliya with HCV unles s early or acute infec tion is suspe cted (whic h may be delay ed in an immun ocomp romis ed indiv idual ), or other evide nce exist s to indic ate HCV infec tion. Not Available [facility] ([facility]) [address] [facility], [place], [address], 02/29/2024 07:13:58 02/06/20 24 02/07/2024 PREGN EMMETT, INITI AL SCREE N RPR Non Reacti ve nonrea ctive Not Available [facility] ([facility]) [address] [facility], [place], [address], 02/29/2024 07:13:59 02/06/20 24 02/07/2024 PREGN EMMETT, INITI AL SCREE N rubella antibodies, IgG <0.90 index immune >0.99 below low normal Non-i mmune <0.90 Equiv ocal 0.90 - 0.99 Immun e >0.99 Not Available [facility] ([facility]) [address] [facility], [place], [address], 02/29/2024 07:13:59 02/06/20 24 02/07/2024 PREGN EMMETT, INITI AL SCREE N ABO grouping A Not Available [facility] ([facility]) [address] [facility], [place], [address], 02/29/2024 07:13:59 02/06/20 24 02/07/2024 PREGN EMMETT, INITI AL SCREE N Rh factor Negati ve Pleas e note: Prior recor ds for this patie nt's ABO / Rh type are not avail able for addit ional verif icati on. Not Available [facility] ([facility]) [address] [facility], [place], [address], 02/29/2024 07:13:59 02/06/20 24 02/07/2024 PREGN EMMETT, INITI AL SCREE N antibody screen Negati ve negati ve Not Available [facility] ([facility]) [address] [place], [address], 02/29/2024 07:13:59 02/06/20 24 02/07/2024 PREGN EMMETT, INITI AL SCREE N HIV Ab/P24 Ag screen Non Reacti ve nonrea ctive HIV Negat franky HIV-1 /HIV- 2 antib odies and HIV-1 p24 antig en were NOT detec yuliya. There is no labor atory evide nce of HIV infec tion. Not Available [facility] ([facility]) [address] [facility], [place], [address], 02/29/2024 07:13:59 02/06/20 24 02/07/2024 PREGN EMMETT, INITI AL SCREE N WBC 12.1 x10e3 /uL 3.4-10 .8 above high normal Not Available [facility] ([facility]) [address] [place], [address], 02/29/2024 07:13:59 02/06/20 24 02/07/2024 PREGN EMMETT, INITI AL SCREE N RBC 3.76 x10e6 /uL 3.77-5 .28 below low normal Not Available [facility] ([facility]) [address] [place], [address], 02/29/2024 07:13:59 02/06/20 24 02/07/2024 PREGN EMMETT, INITI AL SCREE N hemoglobin 11.1 g/dL 11.1-1 5.9 Not Available [facility] ([facility]) [address] [place], [address], 02/29/2024 07:13:59 02/06/20 24 02/07/2024 PREGN EMMETT, INITI AL SCREE N hematocrit 33.6 % 34.0-4 6.6 below low normal Not Available [facility] ([facility]) [address] [facility], [place], [address], 02/29/2024 07:13:59 02/06/20 24 02/07/2024 PREGN EMMETT, INITI AL SCREE N MCV 89 fL 79-97 Not Available [facility] ([facility]) [address] [facility], [place], [address], 02/29/2024 07:13:59 02/06/20 24 02/07/2024 PREGN EMMETT, INITI AL SCREE N MCH 29.5 pg 26.6-3 3.0 Not Available [facility] ([facility]) [address] [place], [address], 02/29/2024 07:13:59 02/06/20 24 02/07/2024 PREGN EMMETT, INITI AL SCREE N MCHC 33.0 g/dL 31.5-3 5.7 Not Available [facility] ([facility]) [address] [place], [address], 02/29/2024 07:13:59 02/06/20 24 02/07/2024 PREGN EMMETT, INITI AL SCREE N RDW 13.0 % 11.7-1 5.4 Not Available [facility] ([facility]) [address] [place], [address], 02/29/2024 07:13:59 02/06/20 24 02/07/2024 PREGN EMMETT, INITI AL SCREE N platelets 470 x10e3 /uL 150-45 0 above high normal Not Available [facility] ([facility]) [address] [facility], [place], [address], 02/29/2024 07:13:59 02/06/20 24 02/07/2024 PREGN EMMETT, INITI AL SCREE N neutrophils 62 % notest ab. Not Available [facility] ([facility]) [address] [facility], [place], [address], 02/29/2024 07:13:59 02/06/20 24 02/07/2024 PREGN EMMETT, INITI AL SCREE N lymphs 28 % notest ab. Not Available [facility] ([facility]) [address] [facility], [place], [address], 02/29/2024 07:13:59 02/06/20 24 02/07/2024 PREGN EMMETT, INITI AL SCREE N monocytes 6 % notest ab. Not Available [facility] ([facility]) [address] [facility], [place], [address], 02/29/2024 07:13:59 02/06/20 24 02/07/2024 PREGN EMMETT, INITI AL SCREE N eos 2 % notest ab. Not Available [facility] ([facility]) [address] [facility], [place], [address], 02/29/2024 07:13:59 02/06/20 24 02/07/2024 PREGN EMMETT, INITI AL SCREE N basos 1 % notest ab. Not Available [facility] ([facility]) [address] [facility], [place], [address], 02/29/2024 07:13:59 02/06/20 24 02/07/2024 PREGN EMMETT, INITI AL SCREE N neutrophils (absolute) 7.6 x10e3 /uL 1.4-7. 0 above high normal Not Available [facility] ([facility]) [address] [facility], [place], [address], 02/29/2024 07:13:59 02/06/20 24 02/07/2024 PREGN EMMETT, INITI AL SCREE N lymphs (absolute) 3.3 x10e3 /uL 0.7-3. 1 above high normal Not Available [facility] ([facility]) [address] [place], [address], 02/29/2024 07:13:59 02/06/20 24 02/07/2024 PREGN EMMETT, INITI AL SCREE N monocytes(ab solute) 0.7 x10e3 /uL 0.1-0. 9 Not Available [facility] ([facility]) [address] [place], [address], 02/29/2024 07:13:59 02/06/20 24 02/07/2024 PREGN EMMETT, INITI AL SCREE N eos (absolute) 0.3 x10e3 /uL 0.0-0. 4 Not Available [facility] ([facility]) [address] [place], [address], 02/29/2024 07:13:59 02/06/20 24 02/07/2024 PREGN EMMETT, INITI AL SCREE N baso (absolute) 0.1 x10e3 /uL 0.0-0. 2 Not Available [facility] ([facility]) [address] [place], [address], 02/29/2024 07:13:59 02/06/20 24 02/07/2024 PREGN EMMETT, INITI AL SCREE N immature granulocytes 1 % notest ab. Not Available [facility] ([facility]) [address] [place], [address], 02/29/2024 07:13:59 02/06/20 24 02/07/2024 PREGN EMMETT, INITI AL SCREE N immature grans (abs) 0.1 x10e3 /uL 0.0-0. 1 Not Available [facility] ([facility]) [address] [place], [address], 02/29/2024 07:13:59 02/06/20 24 02/07/2024 PREGN EMMETT, INITI AL SCREE N specific gravity 1.025 1.005- 1.030 Not Available [facility] ([facility]) [address] [place], [address], 02/29/2024 07:13:59 02/06/20 24 02/07/2024 PREGN EMMETT, INITI AL SCREE N pH 5.5 5.0-7. 5 Not Available [facility] ([facility]) [address] [place], [address], 02/29/2024 07:13:59 02/06/20 24 02/07/2024 PREGN EMMETT, INITI AL SCREE N urine-color Yellow yellow Not Available [facility] ([facility]) [address] [place], [address], 02/29/2024 07:13:59 02/06/20 24 02/07/2024 PREGN EMMETT, INITI AL SCREE N appearance Cloudy clear abnormal Not Available [facility] ([facility]) [address] [place], [address], 02/29/2024 07:13:59 02/06/20 24 02/07/2024 PREGN EMMETT, INITI AL SCREE N WBC esterase 1+ negati ve abnormal Not Available [facility] ([facility]) [address] [place], [address], 02/29/2024 07:13:59 02/06/20 24 02/07/2024 PREGN EMMETT, INITI AL SCREE N protein Trace negati ve/tra ce Not Available [facility] ([facility]) [address] [place], [address], 02/29/2024 07:13:59 02/06/20 24 02/07/2024 PREGN EMMETT, INITI AL SCREE N glucose 3+ negati ve abnormal Not Available [facility] ([facility]) [address] [place], [address], 02/29/2024 07:13:59 02/06/20 24 02/07/2024 PREGN EMMETT, INITI AL SCREE N ketones 1+ negati ve abnormal Not Available [facility] ([facility]) [address] [place], [address], 02/29/2024 07:13:59 02/06/20 24 02/07/2024 PREGN EMMETT, INITI AL SCREE N occult blood 1+ negati ve abnormal Not Available [facility] ([facility]) [address] [place], [address], 02/29/2024 07:13:59 02/06/20 24 02/07/2024 PREGN EMMETT, INITI AL SCREE N bilirubin Negati ve negati ve Not Available [facility] ([facility]) [address] [place], [address], 02/29/2024 07:13:59 02/06/20 24 02/07/2024 PREGN EMMETT, INITI AL SCREE N urobilinogen ,semi-qn 0.2 mg/dL 0.2-1. 0 Not Available [facility] ([facility]) [address] [place], [address], 02/29/2024 07:13:59 02/06/20 24 02/07/2024 PREGN EMMETT, INITI AL SCREE N nitrite, urine Positi ve negati ve abnormal Not Available [facility] ([facility]) [address] [place], [address], 02/29/2024 07:13:59 02/06/20 24 02/07/2024 PREGN EMMETT, INITI AL SCREE N microscopic examination See below: Micro scopi c was indic ated and was perfo rmed. Not Available [facility] ([facility]) [address] [facility] [place], [address], 02/29/2024 07:13:59 02/06/20 24 02/08/2024 PREGN EMMETT, INITI AL SCREE N HBsAg screen Negati ve negati ve Not Available [facility] ([facility]) [address] [facility], [place], [address], 02/29/2024 07:13:59 02/06/20 24 02/08/2024 PREGN EMMETT, INITI AL SCREE N HCV Ab Non Reacti ve nonrea ctive Not Available [facility] ([facility]) [address] [facility], [place], [address], 02/29/2024 07:13:59 02/06/20 24 02/09/2024 PREGN EMMETT, INITI AL SCREE N chlamydia trachomatis, RAISA Negati ve negati ve Not Available [facility] ([facility]) [address] [facility], [place], [address], 02/29/2024 07:13:59 02/06/20 24 02/09/2024 PREGN EMMETT, INITI AL SCREE N neisseria gonorrhoeae, RAISA Negati ve negati ve Not Available [facility] ([facility]) [address] [facility], [place], [address], 02/29/2024 07:13:59 02/06/20 24 02/09/2024 PREGN EMMETT, INITI AL SCREE N urine culture,pren atal, w/gbs Final report abnormal Not Available [facility] ([facility]) [address] [facility], [place], [address], 02/29/2024 07:13:59 02/06/20 24 02/07/2024 MICRO SCOPI C EXAMI NATIO N WBC 6-10 /hpf 0-5 abnormal Not Available [facility] ([facility]) [address] [facility], [place], [address], 02/29/2024 07:13:59 02/06/20 24 02/07/2024 MICRO SCOPI C EXAMI NATIO N RBC None seen /hpf 0-2 Not Available [facility] ([facility]) [address] [facility], [place], [address], 02/29/2024 07:13:59 02/06/20 24 02/07/2024 MICRO SCOPI C EXAMI NATIO N epithelial cells (non renal) 0-10 /hpf 0-10 Not Available [facility] ([facility] [address] [facility], [place], [address], 02/29/2024 07:13:59 02/06/20 24 02/07/2024 MICRO SCOPI C EXAMI NATIO N casts None seen /lpf nonese en Not Available [facility] ([facility]) [address] [facility], [place], [address], 02/29/2024 07:13:59 02/06/20 24 02/07/2024 MICRO SCOPI C EXAMI NATIO N bacteria Many nonese en/few abnormal Not Available [facility] ([facility]) [address] [place], [address], 02/29/2024 07:13:59 02/06/20 24 02/07/2024 UA/M W/RFL X CULTU RE, ROUTI NE urinalysis reflex Commen t This speci men has refle xed to a Urine Cultu re. Not Available [facility] ([facility]) [address] [facility], [place], [address], 02/29/2024 07:14:00 02/06/20 24 02/28/2024 CYSTI C FIBRO SIS, 97 VARIA NTS ethnicity Commen t Not Provi ded Not Available [facility] ([facility]) [address] [place], [address], 02/29/2024 07:14:01 02/06/20 24 02/28/2024 CYSTI C FIBRO SIS, 97 VARIA NTS specimen type Commen t Whole Blood Not Available [facility] ([facility]) [address] [facility], [place], [address], 02/29/2024 07:14:01 02/06/20 24 02/28/2024 CYSTI C FIBRO SIS, 97 VARIA NTS indication Commen t Monica er Test / Scree mariel Not Available [facility] ([facility]) [address] [facility], [place], [address], 02/29/2024 07:14:01 02/06/20 24 02/28/2024 CYSTI C FIBRO SIS, 97 VARIA NTS result: Commen t NEGAT FRANKY Not Available [facility] ([facility]) [address] [facility], [place], [address], 02/29/2024 07:14:01 02/06/2002/28/2024 CYSTI C FIBRO SIS, 97 VARIA NTS interpretati on Commen t Negat franky Resul ts Disor ders (Gene ) Resul t Inter preta tion Cysti c fibro sis NEGAT FRANKY This resul t reduc es, (CFTR ) but does not [id number]. 4 elimi ishmael, the risk to be a monica er. Risk: At reduc ed risk for an affec yuliya pregn emmett. For ethni c-spe cific risk luz elena ions see Infor teja n Table . Not Available [facility] ([facility]) [address] [facility], [place], [address], 02/29/2024 07:14:01 02/06/20 24 02/28/2024 CYSTI C FIBRO SIS, 97 VARIA NTS recommendati ons Commen t If the above resul t is posit franky, juanjo ic couns eling is recom brennen d to discu ss the poten tial clini rochelle and/o r repro ducti ve impli catio ns, as well as recom menda tions for testi ng famil y membe rs and, when appli cable , this indiv idual 's partn er. Juanjo ic couns eling servi kristie are avail able. To acces s [facility] Juanjo ic Couns elors pleas e visit [email or web address] :[email or web address] ea .[facility] orp.c om/ge netic -coun demetri g or call [phone] GC-CA LLS [phone]). Not Available [facility] ([facility]) [address] [facility], [place], [address], 02/29/2024 07:14:01 02/06/20 24 02/28/2024 CYSTI C FIBRO SIS, 97 VARIA NTS additional clinicalinfo rmation Commen t Cysti c fibro sis (CF) is an autos omal reces sive disor eriberto with varia ble sever ity and age at onset . Signs and sympt oms of class ic CF may inclu de eleva yuliya sweat chlor chelsea level s, progr essiv e lung disea se, pancr eatic insuf ficie ncy, and male infer tilit y. Sympt oms of mild CF may inclu de pancr eatic suffi cienc y. Sympt oms of CFTR- relat ed disor ders may inclu de pancr eatit is, bronc hiect asis, and isola yuliya male infer tilit y due to conge nital absen ce of the vas defer ens (CBAV D). Treat ment is dieta ry and suppo rtive . Genot ype-t arget ed thera pies may be avail able for some indiv idual s. In sever stella affec yuliya indiv idual s, lung trans plant ation may be indic ated. (PMID :[id number]) . Not Available [facility] ([facility]) [address] [facility], [place], [address], 02/29/2024 07:14:01 02/06/20 24 02/28/2024 CYSTI C FIBRO SIS, 97 VARIA NTS comments Commen t This inter preta tion is based on the clini rochelle infor matio n provi ded and the curre nt under stand ing of the molec ular juanjo ics of the disor eriberto(s ) teste d. Infor matio n about the disor eriberto(s ) teste d is avail able at [email or web address] :[email or web address]. Not Available [facility] ([facility]) [address] [facility], [place], [address], 02/29/2024 07:14:01 02/06/20 24 02/28/2024 CYSTI C FIBRO SIS, 97 VARIA NTS methods/limi tations Commen t Next- gener ation Seque ncing (NGS) : Genom ic regio ns of inter est in the CFTR gene are selec yuliya using the Tab Asia ience (R) hybri dizat ion captu re metho d and seque nced via the T[place]o(R ) NGS platf orm. Seque ncing reads are align ed to the human genom e refer ence GRCh3 7/hg1 9 build . Regio ns of inter est inclu de genom ic regio ns encom passi ng targe yuliya varia nts. Ryan tical sensi tivit y is estim ated to be >99% for singl e nucle otide varia nts and small inser tions /enrique tions . Varia nt detec tion is perfo rmed by LLOYD [employer] and in-ho use algor ithms . Confi rmato ry testi ng is done by Milton jennings seque ncing . Varia nts are speci fied using the numbe ring and nomen clatu re recom brennen d by the Human Genom e Varia tion Socie ty (HGVS , http: //www .hgvs .org/ ). Varia nt class ifica tion and confi rmati on are consi stent with ACMG stand ards and guide lines (Rich ards, PMID: [id number]; Praitbha, PMID: 59072 774). Ryan sis is restr icted to 97 targe yuliya CF varia nts, liste d below . c.54- 5940_ 273+1 0250d el21k b, c.178 G>T (p.Gl u60*) , c.223 C> T (p.Ar g75*) , c.254 G>A (p.Gl y85Gl u), c.262 _263d elTT (p.Le u88Il efs*2 2), c.273 +1G>A , c.273 +3A>C , c.274 -1G>A , c.274 G>T (p.Gl u92*) , c.313 Emmy (p.Il e105S erfs* 2), c.325 _327d elins G (p.Ty r109G lyfs* 4), c.349 C>T (p.Ar g117C ys), c.350 G>A (p.Ar g117H is), c.366 T>A (p.Ty r122* ), c.442 Emmy (p.Il e148L eufs* 5), c.489 +1G>T , c.531 delT (p.Il e177M etfs* 12), c.532 G>A (p.Gl y178A rg), c.579 +1G&g t;T, c.579 +5G>A , c.580 -1G>T , c.617 T>G (p.Le u206T rp), c.803 Emmy (p.As n268I lefs* 17), c.805 _806d elAT (p.Il e269P rofs* 4), c.935 _937d elTCT (p.Ph e312d el), c.948 delT (p.Ph e316L eufs* 12), c.988 G>T (p.Gl y330* ), c.100 0C>T (p.Ar g334T rp), c.101 3C>T (p.Th r338I le), c.104 0G>A (p.Ar g347H is), c.104 0G>C (p.Ar g347P ro), c.105 5G>A (p.Ar g352G ln), c.[10 75C>A ;1079 C>A] (p.[G ln359 Patricia;T hr360 Patricia]) , c.115 5_115 6dupT A (p.As n386I lefs* 3), c.136 4C>A (p.Al a455G joni), c.143 8G>T (p.Gl y480C ys), c.147 7C>T (p.Gl n493* ), c.151 9_152 1delA TC (p.Il e507d el), c.152 1_152 3delC TT (p.Ph e508d el), c.154 5_154 6delT A (p.Ty r515* ), c.155 8G>T (p.Va l520P he), c.157 2C>A (p.Cy s524* ), c.158 5-1G> A, c.162 4G>T (p.Gl y542* ), c.164 6G>A (p.Se r549A sn), c.164 7T>G (p.Se r549A rg), c.165 2G>A (p.Gl y551A sp), c.165 4C>T (p.Gl n552* ), c.165 7C>T (p.Ar g553* ), c.167 5G>A (p.Al a559T hr), c.167 9G>C (p.Ar g560T hr), c.168 0-1G> A, c.172 1C>A (p.Pr o574H is), c.176 6+1G> A, c.176 6+5G> T, c.182 0_190 3del8 4 (p.Me t607_ Gln63 4del) , c.191 1delG (p.Gl n637H isfs* 26), c.192 3_193 1deli nsA (p.Se r641A rgfs* 5), c.197 3_198 5deli nsAGA AA (p.Ar g658L ysfs* 4), c.197 6delA (p.As n659I lefs* 4), c.201 2delT (p.Le u671* ), c.205 1_205 2deli nsG (p.Ly s684S erfs* 38), c.205 2delA (p.Ly s684A snfs* 38), c.205 2dupA (p.Gl n685T hrfs* 4), c.212 5C>T (p.Ar g709* ), c.212 8A>T (p.Ly s710* ), c.217 5dupA (p.Gl u726A rgfs* 4), c.229 0C>T (p.Ar g764* ), c.265 7+5G> A, c.266 8C>T (p.Gl n890* ), c.273 7_273 8insG (p.Ty r913* ), c.298 8G>A (p.Gl n996= ), c.298 8+1G> A, c.303 9delC (p.Ty r1014 Thrfs *9), c.306 7_307 2delA TAGTG (p.Il e1023 _Val1 024de l), c.319 6C>T (p.Ar g1066 Cys), c.326 6G>A (p.Tr p1089 *), c.327 6C>A (p.Ty r1092 *), c.327 6C>G (p.Ty r1092 *), c.330 2T>A (p.Me t1101 Patricia), c.345 4G>C (p.As p1152 His), c.347 2C>T (p.Ar g1158 *), c.348 4C>T (p.Ar g1162 *), c.352 8delC (p.Ly s1177 Serfs *15), c.353 6_353 9delC CAA (p.Th r1179 Asnfs *12), c.358 7C>G (p.Se r1196 *), c.361 1G>A (p.Tr p1204 *), c.365 9delC (p.Th r1220 Lysfs *8), c.371 2C>T (p.Gl n1238 *), c.371 8-247 7C>T, c.374 4delA (p.Ly s1250 Argfs *9), c.375 2G>A (p.Se r1251 Asn), c.376 4C>A (p.Se r1255 *), c.377 3dupT (p.Le u1258 Phefs *7), c.384 6G>A (p.Tr p1282 *), c.388 9dupT (p.Se r1297 Phefs *5), c.390 9C>G (p.As n1303 Patricia) Limit ation s: Techn ologi es used do not detec t germl ine mosai cism and do not rule out the prese nce of large chrom osoma l aberr ation s inclu ding rearr angem ents and gene fusio ns, or varia nts in regio ns or genes not inclu ded in this test, or possi ble inter /intr ageni c inter actio ns betwe en varia nts, or repea t expan sions . Varia nt class ifica tion and/o r inter preta tion may candelaria e over time if more infor matio n becom es avail able. False posit franky or false negat franky resul ts may occur for reaso ns that inclu de: rare juanjo ic varia nts, sex chrom osome abnor malit ies, pseud ogene inter feren ce, blood trans fusio ns, bone marro w trans plant ation , somat ic or tissu e-spe cific mosai cism, misla beled sampl es, or ashlie eous repre senta tion of famil y relat ionsh ips. This test was devel oped and its perfo rmanc e jeimy cteri stics deter mined by [employer]. It has not been clear ed or appro ángela by the Food and Drug Admin istra tion. Not Available [facility] ([facility]) [address], [place], [address], 02/29/2024 07:14:01 02/06/20 24 02/28/2024 CYSTI C FIBRO SIS, 97 VARIA NTS information table Commen t Cysti c fibro sis, 97 varia nts, risk reduc tions for indiv idual s with no famil y histo ry Popul ation Detec tion rate Pre-t est Post- test monica er monica er risk risk with negat franky resul t Afric an 81% 1 in 61 1 in 316 Ameri can Ashke nazi 97% 1 in 24 1 in 767 Jewis h 55% 1 in 94 1 in 208 Ameri can Cauca saji 93% 1 in 25 1 in 343 Hispa mariaelena 78% 1 in 58 1 in 260 Mixed or For couns eling other ethni c purpo ses, backg round consi eriberto using the ethni c backg round with the most conse rvati ve risk estim ates. Not Available [facility] ([facility]) [address] [facility], [place], [address], 02/29/2024 07:14:01 02/06/20 24 02/28/2024 CYSTI C FIBRO SIS, 97 VARIA NTS references Commen t [place] an JL, Astbu ry C, Cutti ng GR et al. CFTR varia nt testi ng: a techn ical stand dennys of the [facility] [employer] [facility] [employer] al Juanjo ics and Genom ics (AC ). Juanjo Med 22 1284 (2020 ). PMID: [id number] [place] T, Pierre canada SG, Paddy hooks BA, et al. Cysti c Fibro sis and Conge nital Absen ce of the Vas Defer ens. 2000 [Upda yuliya 2016 2]. In: Brandt MP, Tiffanie corona HH, Fabrice RA, et al., daniel rs. GeneR paresh ramirez(R) [Inte rnet] . PMID: [id number] 428 Not Available [facility] ([facility]) [address] [facility], [place], [address], 02/29/2024 07:14:01 02/06/20 24 02/28/2024 CYSTI C FIBRO SIS, 97 VARIA NTS director review/relea se Commen t [employer] nent Type Perfo rmed At Labor atory Direc tor Techn ical Labor atory Jh Martino , compo nent, Corpo ratio n of , PhD proce ssing [facility], [address] , [place], [address] Techn ical Labor atory Jh Martino , compo nent, Corpo ratio n of , PhD ryan sis [facility], [address] , [place], [address] Profe rubyon al Jennifer Martino , compo nent Corpo ratio n of , PhD [facility], [address] [facility] , [place], [address] Elect jazmine aguirre relea sed by Suzi Nettles , PhD, [facility] Not Available [facility] ([facility]) [address] [place], [address], 02/29/2024 07:14:01 02/06/20 24 02/28/2024 CYSTI C FIBRO SIS, 97 VARIA NTS pdf . Not Available [facility] ([facility]) [address] [place], [address], 02/29/2024 07:14:01 02/06/20 24 02/07/2024 [id number] 9 10 DRUG- BUND amphetamines , urine See Final Result s Amphe tamin e test inclu jacquelin Amphe tamin e and Metha mphet amine . Not Available [facility] ([facility]) [address] [place], [address], 02/29/2024 07:14:02 02/06/20 24 02/07/2024 [id number] 9 10 DRUG- BUND barbiturates Negati ve NG/mL cutoff =200 Not Available [facility] ([facility]) [address] [place], [address], 02/29/2024 07:14:02 02/06/20 24 02/07/2024 [id number] 9 10 DRUG- BUND benzodiazepi ejsus Negati ve NG/mL cutoff =200 Not Available [facility] ([facility]) [address] [place], [address], 02/29/2024 07:14:02 02/06/20 24 02/07/2024 [id number] 9 10 DRUG- BUND cannabinoid Negati ve NG/mL cutoff =50 Not Available [facility] ([facility]) [address] [place], [address], 02/29/2024 07:14:02 02/06/20 24 02/07/2024 [id number] 9 10 DRUG- BUND cocaine (metab.) Negati ve NG/mL cutoff =300 Not Available [facility] ([facility]) [address] [place], [address], 02/29/2024 07:14:02 02/06/20 24 02/07/2024 [id number] 9 10 DRUG- BUND methaqualone Negati ve NG/mL cutoff =300 Not Available [facility] ([facility]) [address] [place], [address], 02/29/2024 07:14:02 02/06/20 24 02/07/2024 58082 9 10 DRUG- BUND opiates Negati ve NG/mL cutoff =2000 Opiat e test inclu jacquelin Codei ne and Morph ine only. Not Available [facility] ([facility]) [address] [place], [address], 02/29/2024 07:14:02 02/06/20 24 02/07/2024 [id number] 9 10 DRUG- BUND phencyclidin e Negati ve NG/mL cutoff =25 Not Available [facility] ([facility]) [address] [place], [address], 02/29/2024 07:14:02 02/06/20 24 02/07/2024 [id number] 9 10 DRUG- BUND methadone screen, urine Negati ve NG/mL cutoff =300 Not Available [facility] ([facility]) [address] [place], [address], 02/29/2024 07:14:02 02/06/20 24 02/07/2024 [id number] 9 10 DRUG- BUND propoxyphene , urine Negati ve NG/mL cutoff =300 Not Available [facility] ([facility]) [address] [place], [address], 02/29/2024 07:14:02 02/06/20 24 02/10/2024 [place] [address] 5 amphetamines Positi ve cutoff =1000 abnormal Amphe tamin e test inclu jacquelin Amphe tamin e and Metha mphet amine . Not Available [facility] ([facility]) [address] [place], [address], 02/29/2024 07:14:02 02/06/20 24 02/10/2024 [place] [address] 5 amphetamine Positi ve abnormal Not Available [facility] ([facility]) [address] [place], [address], 02/29/2024 07:14:02 02/06/20 24 02/10/2024 [place] [address] 5 amphetamine conf, MS, ur >3000 NG/mL cutoff =500 Not Available [facility] ([facility]) [address] [place], [address], 02/29/2024 07:14:02 02/06/20 24 02/10/2024 [place] [address] 5 methamphetam ine Positi ve abnormal Not Available [facility] ([facility]) [address] [place], [address], 02/29/2024 07:14:02 02/06/20 24 02/10/2024 [place] [address] 5 methamphetam ine conf, MS, ur >3000 NG/mL cutoff =500 Not Available [facility] ([facility]) [address] [place], [address], 02/29/2024 07:14:02 02/06/20 24 02/07/2024 URINE CULTU RE, ROUTI NE urine culture, routine - Test not perfo rmed. Dupli demi tests order ed. Not Available [facility] ([facility]) [address] [place], [address], 02/29/2024 07:14:03 02/06/20 24 02/09/2024 RESUL T result 1 Commen t abnormal Esche joseluis a coli, ident ified by an autom ated bioch emica l syste m. Great er than 100,0 00 colon y formi ng units per mL Cefaz angel <=4 ug/mL Cefaz angel with an KEVIN <=16 predi cts susce ptibi lity to the oral agent s cefac aranza, cefdi gerber, cefpo doxim e, cefpr ozil, cefur oxime , cepha lexin , and lorac arbef when used for thera py of uncom plica yuliya urina ry tract infec tions due to E. coli, Klebs iella pneum oniae , and Prote us mirab ilis. Not Available [facility] ([facility]) [address] [facility], [place], [address], 02/29/2024 07:14:04 02/06/20 24 02/09/2024 RESUL T antimicrobia l susceptibili ty Commen t S = Susce ptibl e; I = Inter media te; R = Resis tant P = Posit franky; N = Negat franky MICS are expre ssed in micro grams per mL Antib iotic RSLT# 1 RSLT# 2 RSLT# 3 RSLT# 4 Amoxi cilli n/Cla vulan ic Acid S Ampic illin R Cefep andres S Ceftr iaxon e S Cefur oxime I Cipro floxa chelsea S Ertap enem S Genta micin S Imipe nem S Levof loxac in S Merop enem S Nitro furan toin S Piper acill in/Ta zobac chase S Tetra cycli ne R Tobra mycin S Trime thopr im/Grey lfa R Not Available [facility] ([facility]) [address] [facility], [place], [address], 02/29/2024 07:14:04 02/06/20 24 02/07/2024 VARIC DEREK- ZOSTE R V AB, IGG varicella zoster IgG <135 below low normal Negat franky <135 Equiv ocal 135 - 165 Posit franky >165 A posit franky resul t gener ally indic ates expos ure to the patho gen or admin istra tion of speci fic immun oglob ulins , but it is not indic ation of activ e infec tion or stage of disea se. Not Available [facility] ([facility]) [address] [facility], [place], [address], 02/29/2024 07:14:04 02/06/20 24 02/06/2024 pregn emmett test, urine HCG positi ve Not Available In-Office Order Internal Use Only DO Not Attach Compendium DO Not Attach Compendium, Do Not Delete/merge, 02/06/2024 11:59:45 02/06/20 24 02/06/2024 urina lysis , dipst ick Leukocytes Trace Not Available In-Offi ce Order Internal Use Only DO Not Attach Compendium DO Not Attach Compendium, Do Not Delete/merge, 02/06/2024 11:59:26 02/06/20 24 02/06/2024 urina lysis , dipst ick Nitrite positi ve Not Available In-Office Order Internal Use Only DO Not Attach Compendium DO Not Attach Compendium, Do Not Delete/merge, 02/06/2024 11:59:26 02/06/20 24 02/06/2024 urina lysis , dipst ick Urobilinogen .2 Not Available In-Of fice Order Internal Use Only DO Not Attach Compendium DO Not Attach Compendium, Do Not Delete/merge, 02/06/2024 11:59:26 02/06/20 24 02/06/2024 urina lysis , dipst ick Protein 30 Not Available In-Office Order Internal Use Only DO Not Attach Compendium DO Not Attach Compendium, Do Not Delete/merge, 02/06/2024 11:59:26 02/06/20 24 02/06/2024 urina lysis , dipst ick pH 5.5 Not Available In-Office Order Internal Use Only DO Not Attach Compendium DO Not Attach Compendium, Do Not Delete/merge, 02/06/2024 11:59:26 02/06/20 24 02/06/2024 urina lysis , dipst ick Blood Small Not Available In-Office Order Internal Use Only DO Not Attach Compendium DO Not Attach Compendium, Do Not Delete/merge, 02/06/2024 11:59:26 02/06/20 24 02/06/2024 urina lysis , dipst ick Specific [place] 1.030 Not Available In-Off ice Order Internal Use Only DO Not Attach Compendium DO Not Attach Compendium, Do Not Delete/merge, 02/06/2024 11:59:26 02/06/20 24 02/06/2024 urina lysis , dipst ick Ketone Small Not Available In-Office Order Internal Use Only DO Not Attach Compendium DO Not Attach Compendium, Do Not Delete/merge, 02/06/2024 11:59:26 02/06/20 24 02/06/2024 urina lysis , dipst ick Bilirubin Negati ve Not Available In-Office Order Internal Use Only DO Not Attach Compendium DO Not Attach Compendium, Do Not Delete/merge, 02/06/2024 11:59:26 02/06/20 24 02/06/2024 urina lysis , dipst ick Glucose 500 Not Available In-Office Order Internal Use Only DO Not Attach Compendium DO Not Attach Compendium, Do Not Delete/merge, 02/06/2024 11:59:26 02/06/20 24 02/06/2024 edinb urgh postn atal depre ssion scale * Score 3 Not Available In-Office Order Internal Use Only DO Not Attach Compendium DO Not Attach Compendium, Do Not Delete/merge, 02/06/2024 12:48:11 03/12/20 24 03/13/2024 58274 9 10 DRUG- BUND amphetamines , urine SEE FINAL RESULT S Amphe tamin e test inclu jacquelin Amphe tamin e and Metha mphet amine . Not Available [facility] ([facility]) [address] [facility], [place], [address], 03/18/2024 07:15:38 03/12/20 24 03/13/2024 61344 9 10 DRUG- BUND barbiturates NEGATI VE NG/mL cutoff =200 Not Available [facility] ([facility]) [address] [place], [address], 03/18/2024 07:15:38 03/12/20 24 03/13/2024 05601 9 10 DRUG- BUND benzodiazepi jesus NEGATI VE NG/mL cutoff =200 Not Available [facility] ([facility]) [address] [place], [address], 03/18/2024 07:15:38 03/12/20 24 03/13/2024 58357 9 10 DRUG- BUND cannabinoid NEGATI VE NG/mL cutoff =50 Not Available [facility] ([facility]) [address] [place], [address], 03/18/2024 07:15:38 03/12/20 24 03/13/2024 39293 9 10 DRUG- BUND cocaine (metab.) NEGATI VE NG/mL cutoff =300 Not Available [facility] ([facility]) [address] [place], [address], 03/18/2024 07:15:38 03/12/20 24 03/13/2024 55588 9 10 DRUG- BUND methaqualone NEGATI VE NG/mL cutoff =300 Not Available [facility] ([facility]) [address] [place], [address], 03/18/2024 07:15:38 03/12/20 24 03/13/2024 52864 9 10 DRUG- BUND opiates NEGATI VE NG/mL cutoff =2000 Opiat e test inclu jacquelin Codei ne and Morph ine only. Not Available [facility] ([facility]) [address] [place], [address], 03/18/2024 07:15:38 03/12/20 24 03/13/2024 [id number] 9 10 DRUG- BUND phencyclidin e NEGATI VE NG/mL cutoff =25 Not Available [facility] ([facility]) [address] [place], [address], 03/18/2024 07:15:38 03/12/20 24 03/13/2024 [id number] 9 10 DRUG- BUND methadone screen, urine NEGATI VE NG/mL cutoff =300 Not Available [facility] ([facility]) [address] [place], [address], 03/18/2024 07:15:38 03/12/20 24 03/13/2024 23724 9 10 DRUG- BUND propoxyphene , urine NEGATI VE NG/mL cutoff =300 Not Available [facility] ([facility]) [address] [place], [address], 03/18/2024 07:15:38 03/12/20 24 03/17/2024 [place] [address] 5 amphetamines Positi ve cutoff =1000 abnormal Amphe tamin e test inclu jacquelin Amphe tamin e and Metha mphet amine . Not Available [facility] ([facility]) [address] [place], [address], 03/18/2024 07:15:39 03/12/20 24 03/17/2024 [place] [address] 5 amphetamine Positi ve abnormal Not Available [facility] ([facility]) [address] [place], [address], 03/18/2024 07:15:39 03/12/20 24 03/17/2024 [place] [address] 5 amphetamine [place] [address] NG/mL cutoff =500 Not Available [facility] ([facility]) [address] [place], [address], 03/18/2024 07:15:39 03/12/20 24 03/17/2024 [place] [address] 5 methamphetam ine Positi ve abnormal Not Available [facility] ([facility]) [address] [place], [address], 03/18/2024 07:15:39 03/12/20 24 03/17/2024 [place] [address] 5 methamphetam ine conf, [place], [place] 639342 NG/mL cutoff =500 Not Available [facility] ([facility]) [address] [facility], [place], [address], 03/18/2024 07:15:39 03/12/20 24 03/12/2024 urina lysis , dipst ick Leukocytes Modera te Not Available In-Office Order Internal Use Only DO Not Attach Compendium DO Not Attach Compendium, Do Not Delete/merge, 03/12/2024 12:02:44 03/12/20 24 03/12/2024 urina lysis , dipst ick Nitrite positi ve Not Available In-Office Order Internal Use Only DO Not Attach Compendium DO Not Attach Compendium, Do Not Delete/merge, 03/12/2024 12:02:44 03/12/20 24 03/12/2024 urina lysis , dipst ick Urobilinogen .2 Not Available In-Of fice Order Internal Use Only DO Not Attach Compendium DO Not Attach Compendium, Do Not Delete/merge, 03/12/2024 12:02:44 03/12/20 24 03/12/2024 urina lysis , dipst ick Protein Negati ve Not Available In-Office Order Internal Use Only DO Not Attach Compendium DO Not Attach Compendium, Do Not Delete/merge, 03/12/2024 12:02:44 03/12/20 24 03/12/2024 urina lysis , dipst ick pH 5.5 Not Available In-Office Order Internal Use Only DO Not Attach Compendium DO Not Attach Compendium, Do Not Delete/merge, 03/12/2024 12:02:44 03/12/20 24 03/12/2024 urina lysis , dipst ick Blood Negati ve Not Available In-Office Order Internal Use Only DO Not Attach Compendium DO Not Attach Compendium, Do Not Delete/merge, 03/12/2024 12:02:44 03/12/20 24 03/12/2024 urina lysis , dipst ick Specific [place] 1.025 Not Available In-Off ice Order Internal Use Only DO Not Attach Compendium DO Not Attach Compendium, Do Not Delete/merge, [id number] 03/12/2024 12:02:44 03/12/20 24 03/12/2024 urina lysis , dipst ick Ketone Negati ve Not Available In-Office Order Internal Use Only DO Not Attach Compendium DO Not Attach Compendium, Do Not Delete/merge, 03/12/2024 12:02:44 03/12/20 24 03/12/2024 urina lysis , dipst ick Bilirubin Negati ve Not Available In-Office Order Internal Use Only DO Not Attach Compendium DO Not Attach Compendium, Do Not Delete/merge, 03/12/2024 12:02:44 03/12/20 24 03/12/2024 urina lysis , dipst ick Glucose Negati ve Not Available In-Office Order Internal Use Only DO Not Attach Compendium DO Not Attach Compendium, Do Not Delete/merge, [id number] 03/12/2024 12:02:44 03/20/20 24 03/14/2024 US, obste tric, mater nal evalu ation + anato my No observ ation record ed. [facility] ([facility]) [id number] , [place], [address], 03/20/2024 13:56:40 Result Notes None recorded. Problems Name Problem SNOMED Code Status Onset Date Resolution Date Notes Provider Name and Address Organization Details Recorded Time Pregnanc y 60129738 Completed 201701/01/2019 Peggy Raphael [place] null, [place] [facility] 4 09:41:15 History of malignan t neoplasm of breast 599510787 Completed s/p chemother apy for 6 months at age 19 Randa Lakshmi [place] [facility] 9 15:18:26 Herpesvi jennyfer infectio n [id number] Completed Suppressi on therapy at 36 weeks Randa [place]sh[place] [facility] 9 15:18:26 RhD negative 132582811 Completed Rhogam at 32 weeks Randa Laksh[place] [facility] 9 15:18:26 Infectio n by Trichomo zev [id number] Completed Treated with metronida zole x3 Randa Martins [place], [place] [facility] 9 15:18:26 Chlamydi al infectio n [id number] Completed Treated with azithromy chelsea x2 Randa [place]af [place] [facility] 9 15:18:26 Placenta previa [id number] Completed No sex or exercise Repeat ultrasoun d at 28-32 weeks Resolved per ultrasoun d on 10/31/18 Randa [place]ins [place], [place] [facility] 9 15:18:26 Pregnanc y [id number] Completed 201903/14/2021 Peggy Raphael [place], [place] [facility] 4 09:41:15 RhD negative [id number] Completed 2020 Rhogam at 28 weeks. Summer Crowley MD Attn: Jon samano,[address] [place], [address], [place] [facility] 2 10:29:18 Marijuan a user [id number] Completed Encourage cessation Summer Crowley MD Attn: Jon samano,[address] [place], [address] [facility] 2 10:29:18 Herpes simplex type 2 infectio n [id number] Completed Suppressi on therapy at 36 weeks Sumemr Crowley MD Attn: Jon samano,[address] [place], [address] [facility] 2 10:29:18 Maternal tobacco use [id number] Completed Summer Crowley MD Attn: Jon samano,[address] [place], [address] [facility] 2 10:29:18 Acid reflux [id number] Completed Summer Crowley MD Attn: Jon samano,[address] [place], [address] [facility] 2 10:29:18 Fundal height low for dates [id number] Completed Summer Crowley MD Attn: Jon samano,[address] [facility], [place], [address], [place] [facility] 2 10:29:18 Herpes simplex [id number] Active 2020 History of HSV2 tested positive during labs. Emmanuel Castellanos MD Attn: Jon samano,[address] [facility], [place], [address], [place] [facility] 1 12:53:36 Normocyt ic hypochro kevin anemia 57700861 Active 2020 Emmanuel Castellanos MD Attn: Jon samano,[address] [facility], [place], [address] [facility] 1 13:01:12 Smoker 47629247 Active 2020 Emmanuel Castellanos MD Attn: Jon samano,[address] [facility], [place], [address] [facility] 1 13:08:30 Pregnanc y [id number] Completed 202110/20/2021 Peggy Raphael [place] [facility] 4 09:41:15 RhD negative [id number] Completed rhogam at 28 weeks VADIM [place], [place] [facility] 2 12:32:52 Varicell a non-immu ne [id number] Completed VADIM [place] [facility] 2 12:32:52 Herpesvi jennyfer infectio n [id number] Completed Suppressi on therapy at 36 weeks VADIM [place] [facility] 2 12:32:52 Past pregnanc y history of prematur e delivery [id number] Completed [place], [place] - [facility] 2 12:32:52 History of malignan t neoplasm of breast 688998368 Completed Age 19 VADIM [place], [place] [facility] 2 12:32:52 Infectio n by Trichomo ezv [id number] Completed Treated 01/02/22 [place] [facility] 2 12:32:52 Placenta previa partiali s 29392311 Completed Will obtain follow up ultrasoun d. Precautio ns given. 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 Procedures Surgical History Date Name Laterality Status Provider Name and Address Organization Details Recorded Time 4 Depo Injection completed Kaity Jorgensen MD Attn: Accounting,[address] [facility], [place], [address], [place] [facility] 05/05/2024 15:19:43 2 Date of Last Pap Smear completed Radha Miller [place] [facility] 07/04/2023 14:57:59 Imaging Results Imaging Date Name Status LastModified by Organiz ation Details LastModified Time 03/14/2024 US, obstetric, maternal evaluation + anatomy completed [facility] [place] ([facility]uling) [address], [place], [address], 03/20/2024 13:56:40 Procedure Notes None recorded. Medical Equipment None Reported. Allergies No known drug allergies Medications Name Sig Start Date Stop Date Status Note LastModified by Organization Details LastModified Time amoxicillin 500 mg capsule 01/25 completed Not Available Not Available Not Available potassium chloride ER 10 mEq capsule,ext ended release TAKE 2 CAPS BY MOUTH 2 TIMES DAILY FOR 30 DAYS. TO REPLACE POTASSIUM . RECHECK LEVEL THIS SATURDAY. 01/02 completed Not Available Not Available Not Available clindamycin HCl 300 mg capsule 01/25 completed Not Available Not Available Not Available ibuprofen 800 mg tablet 01/02 completed Not Available Not Available Not Available ofloxacin 0.3 % eye drops 12/14 completed Not Available Not Available Not Available hydrocodone 5 mg-acetamin ophen 325 mg tablet TAKE 1 TABLET BY MOUTH EVERY 6 HOURS NEEDED FOR MODERATE TO SEVERE PAIN 07/17 completed Not Available Not Available Not Available promethazin e 12.5 mg tablet Take 1 tablet 4 times a day by oral route as needed. 01/02 completed Not Available Not Available Not Available sertraline 100 mg tablet TAKE 1 TABLET BY MOUTH EVERY DAY 07/17 completed Not Available Not Available Not Available metronidazo le 500 mg tablet TAKE 1 TABLET BY MOUTH IN THE MORNING AND AT BEDTIME FOR 7 DAYS 07/17 completed Not Available Not Available Not Available acetaminoph en 300 mg-codeine 30 mg tablet 12/14 completed Not Available Not Available Not Available acyclovir 400 mg tablet Take 1 tablet every 8 hours by oral route for 30 days. 01/02 completed Not Available Not Available Not Available ciprofloxac in 500 mg tablet 01/25 completed Not Available Not Available Not Available sulfamethox azole 800 mg-trimetho prim 160 mg tablet 01/25 completed Not Available Not Available Not Available omeprazole 40 mg capsule,del ayed release TAKE 1 CAPSULE (40 MG TOTAL) BY MOUTH DAILY. 07/17 completed Not Available Not Available Not Available amoxicillin 500 mg tablet TAKE 1 TAB BY MOUTH 2 TIMES DAILY FOR 10 DAYS. FOR URINE INFECTION 01/25 completed Not Available Not Available Not Available ondansetron 8 mg disintegrat ing tablet DISSOLVE ONE TABLET ON TONGUE TWICE DAILY NEEDED 03/13 completed Not Available Not Available Not Available clindamycin 1 % topical gel APPLY TO FACE TWICE A DAY 03/13 completed Not Available Not Available Not Available cephalexin 500 mg capsule Take 1 capsule every 6 hours by oral route for 10 days. 12/14 completed Not Available Not Available Not Available pantoprazol e 40 mg tablet,emmy yed release Take 1 tablet every day by oral route for 30 days. 03/13 completed Not Available Not Available Not Available erythromyci n 5 mg/gram (0.5 %) eye ointment 01/25 completed Not Available Not Available Not Available promethazin e 25 mg tablet 01/02 completed Not Available Not Available Not Available docusate sodium 100 mg capsule Take 1 capsule twice a day by oral route for 30 days. 03/13 completed Not Available Not Available Not Available gentamicin 0.1 % topical cream 01/02 completed Not Available Not Available Not Available prednisolon e 15 mg/5 mL oral solution 01/02 completed Not Available Not Available Not Available ibuprofen 600 mg tablet 07/17 completed Not Available Not Available Not Available azithromyci n 200 mg/5 mL oral suspension 12/14 completed Not Available Not Available Not Available methylpredn isolone 4 mg tablets in a dose pack 01/02 completed Not Available Not Available Not Available albuterol sulfate HFA 90 mcg/actuati on aerosol inhaler 01/02 completed Not Available Not Available Not Available ondansetron 4 mg disintegrat ing tablet TAKE 1 TAB BY MOUTH EVERY 8 HOURS NEEDED FOR NAUSEA 2ND LINE. 01/02 completed Not Available Not Available Not Available fluoxetine 20 mg capsule TAKE 1 CAPSULE BY MOUTH EVERY DAY 05/05 completed Not Available Not Available Not Available sertraline 50 mg tablet Take 1 tablet every day by oral route. 03/13 completed Not Available Not Available Not Available medroxyprog esterone 150 mg/mL intramuscul ar suspension Inject 1 mL every 3 months by intramusc ular route. 2023 active Not Available Not Available Not Avai lable metoclopram chelsea 10 mg tablet TAKE 1 TAB BY MOUTH 3 TIMES DAILY NEEDED FOR NAUSEA 1ST LINE OR VOMITING. 01/02 completed Not Available Not Available Not Available amoxicillin 875 mg-krishan m clavulanate 125 mg tablet 01/25 completed Not Available Not Available Not Available Reglan 5 mg tablet Take 1 tablet 4 times a day by oral route. 09/01 completed Not Available Not Available Not Available Vitamin 27 mg iron-0.8 mg tablet 03/13 completed Not Available Not Available Not Available azithromyci n 500 mg tablet Take 2 tablets every day by oral route for 1 day. 12/23 completed Not Available Not Available Not Available Klor-Con M20 mEq tablet,exte nded release 01/02 completed Not Available Not Available Not Available nitrofurant oin monohydrate /macrocryst als 100 mg capsule TAKE 1 CAPSULE BY MOUTH TWICE DAILY FOR 7 DAYS FOR UTI 05/05 completed Not Available Not Available Not Available Flagyl 07/17 completed Not Available Not Available Not Available 07/17 completed Not Available Not Available Not Available FeroSul 325 mg (65 mg iron) tablet Take 1 tablet every day by oral route for 30 days. 03/13 completed Not Available Not Available Not Available RhoGAM Ultra-Filte red PLUS 1,500 unit (300 mcg) intramuscul ar syringe Inject 300 microgram s by intramusc ular route. 03/13 completed Not Available Not Available Not Available Gummies active Not Available Not Available Not Available Vitals Date Recorded Body height Body mass index (BMI) Body weight Heart rate Systolic blood pressure Diastolic blood pressure Provider Name and Address Organization Details Last Updated DateTime 3 157.48 cm 27.1 kg/m2 10094.0 3 g 79 /min 120 mm[Hg] 82 mm[Hg] Radha rodriguez [place] - [facility] 3 16:17:48 Date Recorded Body height Body mass index (BMI) Systolic blood pressure Diastolic blood pressure Provider Name and Address Organization Details Last Updated DateTime 02/06/2024 157.48 cm 30.2 kg/m2 131 mm[Hg] 91 mm[Hg] Peggy Raphael [place] [facility] 02/06/2024 11:57:16 Date Recorded Body weight Provider Name an d Address Organization Details Last Updated DateTime 02/06/2024 18003.738349 g Tip Kramer Attn: Accounting,[address] , [place], [address], [facility] 02/06/2024 12:42:13 Date Recorded Body height Provider Name an d Address Organization Details Last Updated DateTime 03/12/2024 157.48 cm Radha Miller MA [facility] 03/12/2024 12:01:41 Date Recorded Body height Body mass index (BMI) Body weight Systolic blood pressure Diastolic blood pressure Provider Name and Address Organization Details Last Updated DateTime 04/27/2024 157.48 cm 27.8 kg/m2 18476.04 024 g 142 mm[Hg] 96 mm[Hg] Peggy Raphael MA [facility] 4 09:38:17 Date Recorded Body height Body mass index (BMI) Body weight Systolic blood pressure Diastolic blood pressure Provider Name and Address Organization Details Last Updated DateTime 05/05/2024 157.48 cm 28.2 kg/m2 48390.51 g 117 mm[Hg] 81 mm[Hg] Radha rodriguez MA [facility] 4 14:30:13 Social History Question Answer Notes LastModified by Organizat ion Details LastModified Time Tobacco Smoking Status Current Every Day Smoker Adilia Anderson MA [facility], [facility] 05/20/2018 10:49:46 Do You Have An Advance Directive? No Information not available 12/14/2021 Is Blood Transfusion Acceptable In An Emergency? Yes Information not available 12/14/2021 What Is Your Level Of Caffeine Consumption? Occasional Information not available 12/14/2021 In The 14 Days Before Symptom Onset, Have You Had Close Contact With A Laboratory-confir med COVID-19 While That Case Was Ill? No Information not available 12/14/2021 In The 14 Days Before Symptom Onset, Have You Had Close Contact With A Person Who Is Under Investigation For COVID-19 While That Person Was Ill? No Information not available 12/14/2021 Have You Been To An Area Known To Be High Risk For COVID-19? No Information not available 12/14/2021 What Type Of Diet Are You Following? REGULAR Information not available 12/14/2021 What Is The Highest Grade Or Level Of School You Have Completed Or The Highest Degree You Have Received? [id number] Information not available 12/14/2021 Have There Been Any Changes To Your Family Or Social Situation? No Information no t available 12/14/2021 What Was The Date Of Your Most Recent Tobacco Screening? 04/27/2024 Information not available 04/27/2024 How Many Children Do You Have? 5 Information not available 12/14/2021 Do You Have Any Pets? No Information not available 12/14/2021 Do You Use Protection During Sex? No Information not available 12/14/2021 What Is Your Relationship Status? Single Information not available 12/14/2021 Do You Use Your Seat Belt Or Car Seat Routinely? Yes Information not available 12/14/2021 Are You Sexually Active? Yes Information not available 12/14/2021 Do You Have Smoke And Carbon Monoxide Detectors In Your Home? Yes Information not available 12/14/2021 Are You Passively Exposed To Smoke? No Information no t available 12/14/2021 How Much Tobacco Do You Smoke? 1 PPD Information not available 05/20/2018 Do You Use Sunscreen Routinely? No Information not available 12/14/2021 Has Tobacco Cessation Counseling Been Provided? No Information not available 12/14/2021 On What Date Was Tobacco Cessation Counseling Provided? 04/27/2024 Information not available 04/27/2024 How Many Years Have You Smoked Tobacco? 10 Information not available 05/20/2018 Have You Used IV Drugs? No Information not available 12/14/2021 Sex: Female Functional Status Question Answer Note LastModified by Organizat ion Details LastModified Time Do you use any illicit or recreational drugs? Yes Information not available 12/14/2021 Do you or have you ever used any other forms of tobacco or nicotine? Yes Information not available 01/25/2021 What is your level of alcohol consumption? None Information not available 12/14/2021 Do you or have you ever used smokeless tobacco? Never used smokeless tobacco Information not available 12/14/2021 Are you currently employed? No Information not available 12/14/2021 Do you or have you ever used e-cigarettes or vape? Never used electronic cigarettes Information not available 12/14/2021 What is your exercise level? Moderate Information not available 12/14/2021 Mental Status Question Answer Note LastModified by Organization D etails LastModified Time Do you feel stressed (tense, restless, nervous, or anxious, or unable to sleep at night)? [id number] Information not available 12/14/2021 Family History Relationship Description Onset Age of this Age Resolved Age Notes LastModified by Organization Details LastModified Time Mother Hypertensive disorder mtitusma Not available 2017 10:49:30 Father Diabetes mellitus mtitusma Not available 2017 10:49:38 Medical History Condition Response Anxiety Disorder Y Anemia Y Breast Cancer Y Gynecological History Statement/Question Response Flow Moderate STIs/STDs N Duration of Flow (days) 7 Age at Menarche 16 Current Control Method None Age at First Child 20 Sexually Active? Y Menses Monthly Y Date of Last Pap Smear 12/14/2021 Sexual Problems? N LMP Approximate Obstetrics History GPAL:G 8 P 4 2 0 6 Type Value Multiple Births 1 Full Term 4 Premature 2 Living 6 Total 8 Immunizations Vaccine Type Date Status Note Provider Nam e and Address Organization Details Recorded Time Tdap 03/15/2022 completed Bernadette Green LPN [place], [place] - [facility] 03/15/2022 15:13:19 Past Encounters Encounter ID Performer Location Encounter Start Date Encounter Closed Date Diagnosis/Indication Diagnosis SNOMED-CT Code Diagnosis ICD10 Code Diagnosis Note [id number] MD Montana Kramer [address] [place] [address] [address] [place] [address] 05/20/2018 10:24:36 05/21/2018 15:42:23 Amenorrhea 93217446 N91.2 Furuncle of vulva 363413 006 N76.4 [id number] MD Montana Kramer 14 OB 4 [facility] [place] [address] 06/17/2018 15:11:26 06/18/2018 14:31:47 Routine care 443713308 Z34.91 Furuncle of vulva 171750 006 N76.4 [id number] MD Montana Kramer 14 OB 4 [facility] [place] [address] 06/23/2018 11:41:24 06/24/2018 11:28:21 Routine care 267967910 Z34.91 Herpes sim plex type 2 infection 238691414 B00.9 Diagnosis discussedS uppression therapy at 36 weeks Nausea and vomiting 1693 2000 R11.2 RhD negative 477625446 Z 01.83 rhogam at 28 weeks [id number] MD Montana Kramer 14 OB 4 [facility] [place] [address] 07/14/2018 11:46:04 07/14/2018 16:16:46 Chlamydial infection 411422739 A74.9 Perform LUPE in 4 weeks. Infection by Trichomonas 60166078 A59.9 Routine an tenatal care 868023027 Z34.91 [id number] MD Montana Kramer 14 OB 4 [facility] [place] [address] 07/22/2018 10:13:52 07/23/2018 13:19:27 Routine care 891551375 Z34.91 Threatened miscarriage 72520432 O20.0 [id number] MD Montana Kramer 14 OB 4 [facility] [place] [address] 07/28/2018 11:12:16 07/28/2018 14:48:49 Routine care 927651961 Z34.91 [id number] [facility] [place] [facility] OB 4 [facility] [place] [address] 08/12/2018 14:13:16 08/13/2018 14:22:05 Placenta previa 12661004 O44.02 [id number] MD Montana Kramer 14 OB 4 [facility] [place] [address] 08/26/2018 14:19:51 09/08/2018 17:56:15 Routine care 881400443 Z34.91 Acid reflux 493136992 K2 1.9 Nausea and vomiting 1693 2000 R11.2 Hernia of anterior abdominal wall 881885650 K43.9 [id number] MD Montana Kramer 14 OB 4 [facility] [place] [address] 09/25/2018 10:57:15 09/25/2018 14:19:37 Routine care 808945382 Z34.91 [id number] MD Montana Kramer 14 OB 4 [facility] [place] [address] 10/27/2018 15:26:42 10/30/2018 09:20:39 Routine care 588979775 Z34.91 Chlamydial infection 105 262750 A74.9 Perform LUPE in 4 weeks. Infection by Trichomonas 80559262 A59.9 Placenta previa 33022098 O44.03 RhD negative 277000053 Z 01.83 Repeat rhogam at 32 weeks [id number] MD Montana Kramer 14 OB 4 [facility] [place] [address] 11/11/2018 15:42:57 11/12/2018 08:57:26 Routine care 188631050 Z34.91 RhD negative 808029481 Z 01.83 [id number] MD Montana Kramer 14 OB 4 [facility] [place] [address] 11/25/2018 14:24:35 11/26/2018 09:27:54 Routine care 557098927 Z34.91 Furuncle of vulva 764146 006 N76.4 [id number] MD Montana Kramer 14 OB 4 [facility] [place] [address] 12/02/2018 14:15:50 12/04/2018 09:25:41 Routine care 768798970 Z34.91 [id number] MD Montana Kramer 14 OB 4 [facility] [place] [address] 12/09/2018 14:36:34 12/09/2018 15:30:49 Routine care 999645534 Z34.91 [id number] MD Montana Kramer 14 OB 4 [facility] [place] [address] 12/16/2018 14:05:26 12/16/2018 16:45:35 Routine care 654535200 Z34.91 [id number] MD Montana Kramer [address] [place] [address] 12/23/2018 14:40:20 12/24/2018 09:25:25 Routine care 026474632 Z34.91 [id number] MD Montana Kramer [address] [place] [address] 01/09/2019 16:21:45 01/12/2019 07:24:49 Depressive disorder 01368715 F32.89 Looking for a counselor through [facility].Foll ow up in 6 weeks for routine post-partu m visit [id number] MD Montana Kramer [address] [place] [address] 08/18/2020 09:27:41 08/22/2020 11:27:34 Early stage of 417286877 Z34.90 Furuncle o f right axilla 8569838769 6518782 L02.533 [id number] MD Montana Kramer [address] [place] [address] 09/28/2020 10:58:05 09/29/2020 13:03:01 Routine care 756881021 Z34.91 RhD negative 280824867 Z 01.83 Rhogam at 28 weeks Herpes sim plex type 2 infection 026172696 B00.9 Suppressio n therapy at 36 weeks. Marijuana user 173667231 F12.90 Encourage cessation Maternal t obacco use in 8698604973 98111 O99.332 Encourage cessation [id number] MD Montana Kramer [address] [place] [address] 10/28/2020 09:16:15 11/01/2020 10:36:23 Routine care 355460903 Z34.91 Acid reflux 843202724 K2 1.9 RhD negative 764775892 Z 01.83 Rhogam at 28 weeks Herpes sim plex type 2 infection 774288353 B00.9 Suppressio n therapy at 36 weeks. Marijuana user 905740821 F12.90 Encourage cessation Maternal t obacco use in 2740036554 00478 O99.332 Encourage cessation Nausea and vomiting 1693 1999 R11.2 [id number] MD Montana Kramer [address] [place] [address] 01/25/2021 12:06:06 01/26/2021 12:36:10 Routine care 864320248 Z34.91 RhD negative 727146147 Z 01.83 Rhogam at 28 weeks Herpes sim plex type 2 infection 603817312 B00.9 Suppressio n therapy at 36 weeks. Maternal t obacco use in 6232029002 97828 O99.332 Encourage cessation Acid reflux 813326215 K2 1.9 Marijuana user 601713226 F12.90 Encourage cessation Fundal hei ght low for dates 047649203 O26.93 Furuncle of vulva 394473 006 N76.4 [id number] MD Montana Kramer [address] [place] [address] [address] 10/18/2021 13:39:12 10/22/2021 15:15:09 Missed period 02340530 N92.5 [id number] MD Montana Kramer [address] Heck [address] [place] [address] 12/14/2021 12:05:34 12/19/2021 04:46:33 Routine care 322657542 Z34.01 Past pregn emmett history of miscarriage 613343180 Z87.59 Past pregn emmett history of premature delivery 276391690 Z87.51 --delivery of twins [id number] MD Montana Kramer [address] Heck [address] [place] [address] 02/14/2022 15:12:17 02/15/2022 06:49:55 Routine care 417632496 Z34.01 Genital he rpes simplex 28478610 A60.9 --Suppress ion therapy at 36 weeks Maternal t obacco use in 0452474071 63511 O99.332 Encourage cessation Past pregn emmett history of premature delivery 238491249 Z87.51 --delivery of twins RhD negative 104945294 Z 01.83 Rhogam at 28 weeks Placenta p revia partialis 35332236 O44.22 -Obtain follow up ultrasound Varicella non-immune 371 494140 Z78.9 Varicela immunizati on afte delivery Personal h istory of primary malignant neoplasm of breast 408273927 Z85.3 [id number] MD Montana Kramer 14 OB 4 [facility] [place] [address] 03/07/2022 15:03:24 03/08/2022 08:46:30 Routine care 947610888 Z34.01 RhD negative 955133334 Z 01.83 Herpes sim plex type 2 infection 528003401 B00.9 Suppressio n therapy at 36 weeks. Past pregn emmett history of premature delivery 328994779 Z87.51 --delivery of twins [id number] MD Montana Kramer [address] [place] [address] [place] [address] 03/15/2022 11:25:42 03/16/2022 08:49:56 Routine care 838150764 Z34.01 Administra tion of diphtheria, pertussis, and tetanus vaccine 605792920 Z23 At [facility] risk of urinary tract infection 604165862 Z91.89 Acid reflux 134395501 K2 1.9 Herpes sim plex type 2 infection 605249950 B00.9 Suppressio n therapy at 36 weeks. Smoker 77907497 F17.200 --Encourag e cessasatio n Past pregn emmett history of premature delivery 299465821 Z87.51 --delivery of twins RhD negative 694133210 Z 01.83 --s/p rhogam Varicella non-immune 371 592638 Z78.9 Varicela immunizati on after delivery Personal h istory of primary malignant neoplasm of breast 304777896 Z85.3 --at age 19 [id number] MD Montana Kramer 14 OB 4 [facility] [place] [address] 03/13/2023 16:08:33 03/15/2023 13:10:56 Vaginal bleeding complicating early 110542859 O20.9 --Will monitor trend of Beta HCG [id number] MD Montana Kramer [address] [place] [address] [place] [address] 02/06/2024 11:39:26 02/07/2024 06:54:54 Routine care 971419246 Z34.01 Herpes sim plex type 2 infection 525775008 B00.9 Suppressio n therapy at 36 weeks. Past pregn emmett history of premature delivery 545254692 Z87.51 --delivery of twins RhD negative 242923053 Z 01.83 --needs rhogam at 28 weeks Varicella non-immune 371 095563 Z78.9 Varicela immunizati on after delivery Personal h istory of primary malignant neoplasm of breast 087902234 Z85.3 --at age 19 Late entry into care 051428837 O09.32 social science analyst consult Acute urin magi tract infection 591325624 N39.0 Depression screening 171 221415 Z13.31 Second tri mester 33678288 Z34.92 [id number] MD Montana Kramer 14 OB 4 [facility] [address] 03/12/2024 11:43:16 03/23/2024 09:29:40 Routine care 627021888 Z34.01 Third trim david 54519127 Z33.1 [id number] MD Montana Kramer 14 OB 4 [facility] [place] [address] 04/27/2024 09:23:58 05/01/2024 10:10:11 care 720133839 Z39.2 Contracept ion care management 036553785 Z30.9 Depression screening 171 095393 Z13.31 --PHQ9=18 Overweight 210953595 E66 .3 [id number] MD Montana Kramer 14 OB 4 [facility] [place] [address] 05/05/2024 14:14:17 05/06/2024 19:35:14 Contraception care management 138901618 Z30.9 Hidradenitis 63130523 L7 3.2 Overweight 671435467 E66 .3 Health Concerns Section Related Observation LastModified by Organization Phill ls LastModified Time None Recorded Concern Status LastModified by Organization Details LastModified Time None Recorded Advance Directives Directive N: Payers Encounter Date Sequence Insurance Name Policy Number Policy Krishnan Covered Member ID Krishnan Member ID Guarantor Name 03/13/2023 1 [facility] (MEDICAID HMO) [id number] Ashlyn Felicitas [id number] Ashlyn M Felicitas 02/06/2024 1 [facility] (MEDICAID HMO) [id number] 0003 Ashlyn Felicitas [id number] Ashlyn M Felicitas 03/12/2024 1 [facility] (MEDICAID HMO) [id number] 0003 Ashlyn Felicitas [id number] Ashlyn M Felicitas 04/27/2024 1 [facility] (MEDICAID HMO) [id number] 0003 Ashlyn Felicitas [id number] Ashlyn M Felicitas 05/05/2024 1 [facility] (MEDICAID HMO) [id number] 0003 Ashlyn Felicitas [id number] Ashlyn M Felicitas Notes Date Note Type Note Provider Name and Address Organization Details Recorded Time 03/13/2023 text/html Patient presents with the complaint of bleeding during . She states that she continues to bleed and but denies passing any tissue. She continues to bleed now. Kaity Jorgensen MD Attn: [address] [place], [address], [facility] 03/20/2023 20:40:11 02/06/2024 text/html See jaylen w sheet. Radha Miller MA [facility], [place] - [facility] 02/06/2024 12:52:41 03/12/2024 text/html See jaylen w sheet. Kaity Jorgensen MD Attn: [address] [place], [address], [facility] 03/21/2024 22:08:53 04/27/2024 text/html VisitReported bypatient.Onset/Andrea ing:date of delivery: (03/14/24) Quality: Context:complicatio ns of : none; complications of labor: none; complications: none; feeding choice: bottle; depression (pt's was placed in foster care) Associated Symptoms:no abnormal bleeding; no pelvic pain; laceration well healed; no constipation; no fecal incontinence; no dysuria; no urinary incontinence; no fever; no mastitisNotes:Patie nt desires depo provera for contraception. Kaity Jorgensen MD Attn: Accounting[address], [place], [address], [facility] 04/27/2024 10:58:26 05/05/2024 text/html Patient presents for depo provera injection. She also requests a referral to a pin or clip fastener secondary to boils. Kaity Jorgensen MD Attn: Accounting,[address], [place], [address], [facility] 05/05/2024 15:21:04 OBGyn Episode Ob Episode Information Episode Created Date Number of Fetuses Patient Bloodtype Patient rh Status Prepregnancy Weight lbs Domestic Partner Domestic Partner Phone Father Name Green Chain Puller Status 10/02/20 23 1 A Negative CLOSED Fetus Data First Name Last Name Admitted to NICU Weight (g) Sex Living Outcome Pediatric Complications Fetus ID Race Codes Race Delivery Type Anasta Irene morales Harpe r Hamma ck true 3486.98 85 F true Prematur e 32413 2106-3 White Vaginal Problems Problem Notes bottle ,, boy cir yes cat no epidural yes social assessment done Problem Name Start Date End Date Resolution Snomed Code Not e Harmful pattern of use of methamphetamine 436006602 Acute urinary tract infection 479658458 Varicella non-immune 598253934 RhD negative 037341190 Rubella non-immune 909711742 Zachary Calculation Initial Zachary Date Initial Exam Date Initial Exam Provider Initial Ultrasound Date Last Menstrual Period Date Ultra Sound Weeks Gestation 05/13/[facility]24 [facility]14[facility] 08/07/2023 33 Eighteen To Twenty Week Zachary Update Ultra Sound Date Fundal Height At Umbil Quickening Date Ultra Sound Latest Weeks Gestation Final Zachary Confirmed By Final Zachary Confirmed Date Final Zachary Date Ultra Sound Latest Days Gestation 0 05/13/20 24 0 Pre- Flowsheet Flowsheet Date 02/06/2024 Chandler Score Blood Edema Fundus Height Fundus Units Glucose Ketones Leukocytes Nitrite Labor Signs Protein Cervic Dilation Cervic Effacement Cervic Station neg none 32 cm none negative none neg Type Weight in lbs Pre/Post Dialysis Refused Weight 165.065624459136 BP Diastolic BP Location Tested BP Systolic BP Type 91 131 sitting Fetus Heart Rate Present A 140's Present Fetus Movement A Yes Comments Patient presents for initial visit. CBE and pap smear performed. Will obtain labs and schedule anatomy sonogram. labor precautions given. RTC in 4 weeks. Flowsheet Date 03/12/2024 Chandler Score Blood Edema Fundus Height Fundus Units Glucose Ketones Leukocytes Nitrite Labor Signs Protein Cervic Dilation Cervic Effacement Cervic Station neg none 32 cm none negative none neg Type Weight in lbs Pre/Post Dialysis Refused BP Diastolic BP Location Tested BP Systolic BP Type Fetus Heart Rate Present A 140's Present Fetus Movement A Yes Comments Patient admits to FM, denies VB, LOF and CTXS. Pt has not had a dating sonogram yet, encouraged to scheduled. labor precautions given. RTC in 2 weeks. Flowsheet Date 04/27/2024 Chandler Score Blood Edema Fundus Height Fundus Units Glucose Ketones Leukocytes Nitrite Labor Signs Protein Cervic Dilation Cervic Effacement Cervic Station Type Weight in lbs Pre/Post Dialysis Refused Weight 152.671447389542 BP Diastolic BP Location Tested BP Systolic BP Type 96 142 sitting Fetus Heart Rate Present Fetus Movement Comments Menstrual History Last Menstrual Date Menses Monthly On Bcp Conception Prior Menses Frequency Hcg Plus Date Menarche Onset Age 1008/07/2023 false false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 Yes Comments Patient states that her joes roberto ia is sometimes painful and now she has a hard time reducing it. She would like to speak with a specialist regarding this, plan to refer to [place] [facility]. She also would like medication to help with nausea and acid reflux. RTC in 4 weeks. Flowsheet Date 09/25/2018 Chandler Score Blood Edema Fundus Height Fundus Units Glucose Ketones Leukocytes Nitrite Labor Signs Protein Cervic Dilation Cervic Effacement Cervic Station neg none 32 cm none negative none neg Type Weight in lbs Pre/Post Dialysis Refused Weight 157.944026677931 BP Diastolic BP Location Tested BP Systolic BP Type 76 130 sitting Fetus Heart Rate Present A 140's Present Fetus Movement A Yes Comments Patient denies any complaint s. She states she does not want to do the LUPE today, states she will do it at her next visit. DMS and CBC today. RTC in 2 weeks. Flowsheet Date 10/27/2018 Chandler Score Blood Edema Fundus Height Fundus Units Glucose Ketones Leukocytes Nitrite Labor Signs Protein Cervic Dilation Cervic Effacement Cervic Station trace none 31 cm none negative none neg Type Weight in lbs Pre/Post Dialysis Refused With clothes 157.208272963755 BP Diastolic BP Location Tested BP Systolic BP Type 64 107 sitting Fetus Heart Rate Present A 150's Present Fetus Movement A Yes Comments Patient admits to continued vaginal bleeding but states that she knows that she is reinfected with chlamydia and trichomonas, will retreat. Informed patient that she should not have sex with her partner until she knows that he has been treated as well. Will order follow ultrasound to monitor for placenta previa. Received rhogam at 20 weeks, will repeat at 32 weeks. labor precautions given. RTC in 2 weeks. Flowsheet Date 11/11/2018 Chandler Score Blood Edema Fundus Height Fundus Units Glucose Ketones Leukocytes Nitrite Labor Signs Protein Cervic Dilation Cervic Effacement Cervic Station neg none 34 cm 1+ negative none trace Type Weight in lbs Pre/Post Dialysis Refused With clothes 162.715885248496 BP Diastolic BP Location Tested BP Systolic BP Type 76 122 sitting Fetus Heart Rate Present A 140's Present Fetus Movement A Yes Comments Patient denies any complaint s. Rhogam today. CBC at next visit. labor precautions given. RTC in 2 weeks. Flowsheet Date 11/25/2018 Chandler Score Blood Edema Fundus Height Fundus Units Glucose Ketones Leukocytes Nitrite Labor Signs Protein Cervic Dilation Cervic Effacement Cervic Station trace none 35 cm 1+ negative none trace Type Weight in lbs Pre/Post Dialysis Refused With clothes 166.923286311602 BP Diastolic BP Location Tested BP Systolic BP Type 76 124 sitting Fetus Heart Rate Present A 140's Present Fetus Movement A Yes Comments Patient states she does not want a vaginal exam today secondary to a boil on her labia. Will treat boil and test for STD and GBS next visit in 1 week. labor precautions given. RTC in 1 week. Flowsheet Date 12/02/2018 Chandler Score Blood Edema Fundus Height Fundus Units Glucose Ketones Leukocytes Nitrite Labor Signs Protein Cervic Dilation Cervic Effacement Cervic Station neg none 36 cm none negative none 1+ Type Weight in lbs Pre/Post Dialysis Refused With clothes 167.131532836393 BP Diastolic BP Location Tested BP Systolic BP Type 78 128 sitting Fetus Heart Rate Present A 140's Present Fetus Movement A Yes Comments Patient denies any complaint s. SSE performed. STD and GBS testing today. labor precautions given. RTC in 1 week. Flowsheet Date 12/09/2018 Chandler Score Blood Edema Fundus Height Fundus Units Glucose Ketones Leukocytes Nitrite Labor Signs Protein Cervic Dilation Cervic Effacement Cervic Station trace none 36 cm 1+ negative none neg Type Weight in lbs Pre/Post Dialysis Refused With clothes 168.693036709845 BP Diastolic BP Location Tested BP Systolic BP Type 72 122 sitting Fetus Heart Rate Present A 140's Present Fetus Movement A Yes Comments Patient denies any complaint s. She has been informed of her current infection with trichomonas. States she just picked up the medication but has not taken it yet. She has been informed that her partner needs to be treated as well and that they should not have sex for 7 days after treatment. Labor precautions given. RTC in 1 week. Flowsheet Date 12/16/2018 Chandler Score Blood Edema Fundus Height Fundus Units Glucose Ketones Leukocytes Nitrite Labor Signs Protein Cervic Dilation Cervic Effacement Cervic Station trace none 38 cm 1+ negative none 1+ 2cm 30% -3 Type Weight in lbs Pre/Post Dialysis Refused With clothes 165.612042111309 BP Diastolic BP Location Tested BP Systolic BP Type 72 122 sitting Fetus Heart Rate Present A 150's Present Fetus Movement A Yes Comments Patient admits to low back p ain, encouraged use of abdominal binder. She admits to FM, denies VB, LOF and CTXs. Labor precautions given. RTC in 1 week. Flowsheet Date 12/23/2018 Chandler Score Blood Edema Fundus Height Fundus Units Glucose Ketones Leukocytes Nitrite Labor Signs Protein Cervic Dilation Cervic Effacement Cervic Station trace none 37 cm none negative none trace Type Weight in lbs Pre/Post Dialysis Refused With clothes 167.649440598938 BP Diastolic BP Location Tested BP Systolic BP Type 84 128 sitting Fetus Heart Rate Present A 140's Present Fetus Movement A Yes Comments Patient admits to irregular contractions. She denies any other complaints. Labor precautions given. RTC in 1 week. Menstrual History Last Menstrual Date Menses Monthly On Bcp Conception Prior Menses Frequency Hcg Plus Date Menarche Onset Age 0603/25/2018 true Genetic Screening And Infection History Question Response Note Patient's Age Will Be 35 Yea rs Or Older At Estimated Date of Delivery false Thalassemia (Cape Verdean, Thai, Mediterranean, Or Background): MCV < 80 false Neural Tube Defect (Meningom yelocele, Spina Bifida, Or Anencephaly) false Congenital Heart Defect false Down Syndrome false Ash-Sachs (eg, Zoroastrian, Cajun, Chadian-[place]) t rasheede MOB's grandmother Cristino Disease false Sickle Cell Disease Or Trait () false Hemophilia Or Other Blood Disorders false Muscular Dystrophy false Cystic Fibrosis false Allen's Chorea false Mental Retardation/Autism false Other Inherited Genetic Or Chromosomal Disorder false Maternal Metabolic Disorder (eg, Type 1 Diabetes , PKU) true MOB's father Patient Or Baby's Father Had A Child With Defects Not Listed Above false Recurrent Loss, Or A Stillbirth false Medications (including Suppl ements, Vitamins, Herbs, OTC Drugs), Illicit/Recreational Drugs, Alcohol true PNV Any Other Genetic History false Live With Someone With TB Or Exposed To TB false Patient Or Partner Has History Of Genital Herpes false Rash Or Viral Illness Since Last Menstrual Perio d false History Of STD, Gonorrhea, Chlamydia, HPV, Syphi lis false Other Infection History false Delivery Information Delivery Date Delivery Type Labor Anesthesia Weeks Gestation Incision Type Labor Labor Length Hrs Delivered By Post Complications Tubal Sterilization Discharge Date Comments 9 [facility] 39.4 kolade 12/29/2018 Discharge Information Feeding Method Contraceptive Method Maternal HG B and HCT Levels Ob Episode Information Episode Created Date Number of Fetuses Patient Bloodtype Patient rh Status Prepregnancy Weight lbs Domestic Partner Domestic Partner Phone Father Name Green Chain Puller Status 05/20/20 18 1 CLOSED Fetus Data First Name Last Name Admitted to NICU Weight (g) Sex Living Outcome Pediatric Complications Fetus ID Race Codes Race Delivery Type 2182.68 4704 [place] [id number] Vaginal Only Zachary Calculation Initial Zachary Date Initial Exam Date Initial Exam Provider Initial Ultrasound Date Last Menstrual Period Date Ultra Sound Weeks Gestation 0 Eighteen To Twenty Week Zachary Update Ultra Sound Date Fundal Height At Umbil Quickening Date Ultra Sound Latest Weeks Gestation Final Zachary Confirmed By Final Zachary Confirmed Date Final Zachary Date Ultra Sound Latest Days Gestation 0 0 Menstrual History Last Menstrual Date Menses Monthly On Bcp Conception Prior Menses Frequency Hcg Plus Date Menarche Onset Age Delivery Information Delivery Date Delivery Type Labor Anesthesia Weeks Gestation Incision Type Labor Labor Length Hrs Delivered By Post Complications Tubal Sterilization Discharge Date Comments 7 33 Discharge Information Feeding Method Contraceptive Method Maternal HG B and HCT Levels Ob Episode Information Episode Created Date Number of Fetuses Patient Bloodtype Patient rh Status Prepregnancy Weight lbs Domestic Partner Domestic Partner Phone Father Name Green Chain Puller Status 05/20/20 18 1 CLOSED Fetus Data First Name Last Name Admitted to NICU Weight (g) Sex Living Outcome Pediatric Complications Fetus ID Race Codes Race Delivery Type 2040.16 4 F Prematur e [id number] Vaginal Only Zachary Calculation Initial Zachary Date Initial Exam Date Initial Exam Provider Initial Ultrasound Date Last Menstrual Period Date Ultra Sound Weeks Gestation 0 Eighteen To Twenty Week Zachary Update Ultra Sound Date Fundal Height At Umbil Quickening Date Ultra Sound Latest Weeks Gestation Final Zachary Confirmed By Final Zachary Confirmed Date Final Zachary Date Ultra Sound Latest Days Gestation 0 0 Menstrual History Last Menstrual Date Menses Monthly On Bcp Conception Prior Menses Frequency Hcg Plus Date Menarche Onset Age Delivery Information Delivery Date Delivery Type Labor Anesthesia Weeks Gestation Incision Type Labor Labor Length Hrs Delivered By Post Complications Tubal Sterilization Discharge Date Comments 7 33 Discharge Information Feeding Method Contraceptive Method Maternal HG B and HCT Levels Ob Episode Information Episode Created Date Number of Fetuses Patient Bloodtype Patient rh Status Prepregnancy Weight lbs Domestic Partner Domestic Partner Phone Father Name Green Chain Puller Status 06/17/20 18 1 CLOSED Fetus Data First Name Last Name Admitted to NICU Weight (g) Sex Living Outcome Pediatric Complications Fetus ID Race Codes Race Delivery Type 3288.54 2 Full Term [id number] Vaginal Only Zachary Calculation Initial Zachary Date Initial Exam Date Initial Exam Provider Initial Ultrasound Date Last Menstrual Period Date Ultra Sound Weeks Gestation 0 Eighteen To Twenty Week Zachary Update Ultra Sound Date Fundal Height At Umbil Quickening Date Ultra Sound Latest Weeks Gestation Final Zachary Confirmed By Final Zachary Confirmed Date Final Zachary Date Ultra Sound Latest Days Gestation 0 0 Menstrual History Last Menstrual Date Menses Monthly On Bcp Conception Prior Menses Frequency Hcg Plus Date Menarche Onset Age Delivery Information Delivery Date Delivery Type Labor Anesthesia Weeks Gestation Incision Type Labor Labor Length Hrs Delivered By Post Complications Tubal Sterilization Discharge Date Comments 6 None 39 Male Discharge Information Feeding Method Contraceptive Method Maternal HG B and HCT Levels
[2025-03-03 15:43] VITALS: BP 144/74; PULSE 91; RESP 18; TEMP 36.6; O2SAT 100
--- NOTE | 2025-03-03 15:53 | ED.LOWEXIN ---
HPI - Extremity Injury (Lower) General Chief Complaint: Extremity Injury, Lower Stated Complaint: Left Foot Injury Source: patient Mode of arrival: ambulatory Limitations: no limitations History of Present Illness HPI Narrative: 30 y/o female presented for c/o left foot pain, swelling and bruising following an injury 3 days ago. Says she stepped off of a curb and rolled the ankle. Has applied ice and taking Tylenol. Denies numbness, tingling or deformity. Related Data Home Medications ?Medication ?Instructions ?Recorded ?Confirmed ?Last Taken ?Type No Home Medications 03/03/25 03/03/25 Unknown History Allergies Allergy/AdvReac Type Severity Reaction Status Date / Time No Known Allergies Allergy Verified 03/03/25 15:50 Review of Systems Review of Systems: CONSTITUTIONAL: Denies body aches, fever, chills CARDIOVASCULAR: Denies chest pain, palpitations, or edema. RESPIRATORY: Denies cough or dyspnea. SKIN: Denies rash, or wounds. MUSCULOSKELETAL: reports left foot pain NEUROLOGIC: Denies numbness, tingling, or weakness. All systems reviewed & are unremarkable except as noted in HPI and below PMFSH Social History Social History (Updated 03/03/25 @ 15:55 by Christina Tovar, ENLISTED AIRCREW/AERIAL OBSERVER/GUNNER) Smoking status: Current every day smoker Comments At time of signature, I have reviewed and agree with nursing past medical, surgical, social and family history unless otherwise noted. Please see nursing chart for further information. There is no relevant family history pertinent to the presenting complaint Exam Narrative: GENERAL: Well-appearing, well-nourished, and in no acute distress. CHEST: Speaks in full sentences. No respiratory distress. HEART: Regular rate and rhythm. Normal and equal peripheral pulses. EXTREMITIES: Left lateral and dorsal foot with bruising; swelling and tenderness over the 4th and 5th metatarsals. Foot has normal strength and sensation, normal range of motion at ankle but endorses pain with movement. No open wounds or obvious deformity; alignment normal, pulse palpable and equal bilaterally, skin warm, dry, pink. Capillary refill less than 3 seconds. SKIN: Warm, dry, no rash. NEURO: Alert and oriented x3. PSYCH: Normal mood and affect Course Course Emergency Course: Patient is aware of diagnosis, understands and agrees to treatment plan. Anticipatory guidance given. Patient agrees to follow-up as directed and is aware of reasons to seek care at the emergency department. Portions of this record may have been created with voice recognition software Level of Care: Express Care Visit Vital Signs Vital signs: Vital Signs Temperature 97.9 F 03/03/25 15:43 Pulse Rate 91 03/03/25 15:43 Respiratory Rate 18 03/03/25 15:43 Blood Pressure 144/74 H 03/03/25 15:43 Pulse Oximetry 100 03/03/25 15:43 Oxygen Delivery Room Air 03/03/25 15:43 Temperature 97.9 F 03/03/25 15:43 Pulse Rate 91 03/03/25 15:43 Respiratory Rate 18 03/03/25 15:43 Blood Pressure 144/74 H 03/03/25 15:43 Pulse Oximetry 100 03/03/25 15:43 Oxygen Delivery Room Air 03/03/25 15:43 Reviewed MDM - Extremity Injury (Lower) MDM Narrative Medical decision making narrative: Discussed physical exam findings and xray. Pt states she has a walking boot at home from a previous foot injury and will apply it when she arrives home. She understands to f/u with ortho and limit weight bearing. Advised supportive measures and signs/symptoms to go to the ER. Pt is appropriate for outpt treatment and f/u. Differential Diagnosis Differential diagnosis: Likely ankle sprain and strain, fracture of toe, ankle fracture and other (foot fracture,sprain strain) Imaging Data Radiologist's impression: Patient: Ashlyn Polk : 1995 MR#: [id number] Age: 30 Acct:[id number] Loc: [facility] ADM Date: 03/03/25Attending Dr: Ordering Physician: Christina Tovar APRN Date of Service: 03/03/25 Procedure(s): XR ankle LT min 3V Accession Number(s): [id number] cc: Christina Tvoar APRN; SENIOR WIND ENERGY CONSULTANT PHYSICIAN~ XR ankle LT min 3V Ordering provider: Christina Tovar APRN History: . HYPEREXTENSION INJURY, GEN PAIN . Comparison: None. FINDINGS: BONES: No acute fracture or dislocation. JOINT SPACES: The ankle mortise is normal. SOFT TISSUES: Normal. IMPRESSION: No acute osseous abnormality left ankle. Patient: Ashlyn Polk : 1995 MR#: [id number] Age: 30 Acct:[id number] Loc: [facility] ADM Date: 03/03/25Attending Dr: Ordering Physician: Christina Tovar APRN Date of Service: 03/03/25 Procedure(s): XR foot LT min 3V Accession Number(s): [id number] cc: Christina Tovar APRN; SENIOR WIND ENERGY CONSULTANT PHYSICIAN~ HISTORY: HYPEREXTENSION INJURY, GEN PAIN COMPARISON: None TECHNIQUE: 3 views of the left foot were performed FINDINGS: Cortical irregularity along the anterior medial margin of the distal calcaneus, only visualized on a single view for which clinical correlation is needed regarding point tenderness, as this may simply represent degenerative disease. No additional findings to suggest a fracture deformities are present The base of the fifth metatarsal is intact. No calcaneal spur is noted. Trace dorsal soft tissue swelling is present within the mid foot and hindfoot. IMPRESSION: Cortical irregularity along the anterior medial margin of the distal calcaneus, visualized on a single view only for which clinical correlation is needed regarding point tenderness in this location as this may simply represent degenerative disease (and an irregular osteophyte). Discharge Plan Discharge Clinical Impression: Foot sprain Qualifiers: Encounter type: initial encounter Laterality: left Qualified Code(s): S93.602A - Unspecified sprain of left foot, initial encounter Calcaneus fracture, left Qualifiers: Encounter type: initial encounter Calcaneus location: unspecified portion of calcaneus Fracture type: closed Fracture alignment: nondisplaced Qualified Code(s): S92.002A - Unspecified fracture of left calcaneus, initial encounter for closed fracture Patient Disposition: Home Condition: Stable Instructions: Foot Fracture in Adults (ED), Foot Sprain (ED) Additional Instructions: Rest and elevate the left leg; limit weight bearing Apply ice 15-20 minute intervals several times a day Keep it wrapped with MARGARITA and use the walking boot you have at home. Motrin 800mg every 8 hours, alternate with Tylenol 1000mg every 8 hours as needed Follow up with the event marketing specialist for further evaluation and management Follow up with your primary care provider as needed Go to the ER for worsening symptoms or concerns Patient Language: Danish Prescriptions: No Action No Home Medications Follow-up/Referrals: PHYSICIAN,SENIOR WIND ENERGY CONSULTANT [Primary Care Provider] - Kan Benoit MD [Physician] - (Cortical irregularity along the anterior medial margin of the distal calcaneus) Time of Disposition: 16:58
== END 2025-03-03 17:02 | disposition home or self-care (01) ==
PROVIDERS: Emergency Provider Nurse Practitioner Family
DX: S93.602A Unspecified sprain of left foot, initial encounter (principal); X50.9XXA Other and unspecified overexertion or strenuous movements or postures, initial encounter; S92.002A Unspecified fracture of left calcaneus, initial encounter for closed fracture; F17.200 Nicotine dependence, unspecified, uncomplicated
CPT/HCPCS: 73610; 73630; 99213; G0463